=== PATIENT | male | born 1930 | race Caucasian/White ===

== ENCOUNTER → 2016-12-15 19:18 | Outpatient (CLI) | payer MEDICARE, BC ==
[2015-01-17 14:03] VITALS: BMI 23.3
[~2016-12-15 19:18] MED LIST: ALBUTEROL2.5 MG/3 M UPD; ALLEGRA180 MG PO; ATROVENT 0.02%2.5 ML UPD; AZELASTINE137 MCG/0. NASAL; BAYER CHEWABLE81 MG PO; BETAPACE 80 MG80 MG PO; BOUDREAUXS BUTT60 GM TOPICAL; CELEXA20 MG PO; COUMADIN4 MG PO; COUMADIN5 MG PO; COUMADIN7.5 MG PO; DESERYL100 MG PO; DUONEB 2.5-0.5 M3 ML INH; DUONEB 2.5-0.5 M3 ML UPD; EFFIENT10 MG PO; FLORAJEN3 CAPS460 MG PO; FLUTICASONE PRO16 GM NASAL; GAS-X80 MG PO; GLIMEPIRIDE2 MG PO; GLUCOTROL 5 MG T5 MG PO; HUMULIN R100 U/ML SC; LANTUS INSULIN10 ML SC; LASIX40 MG PO; LUTEIN20 MG PO; LYRICA150 MG PO; MEGACE40 MG PO; MIRAPEX0.5 MG PO; MUCINEX DM ER1 EAC1 PO; NITRO-DUR0.2 MG TD; NORCO 10/325 TA1 TA1 PO; PLAVIX75 MG PO; PREDNISONE20 MG PO; PRILOSEC2.5 MG PO; PRILOSEC20 MG PO; PROTONIX40 MG PO; PULMICORT0.5 MG/21 UPD; RACEMIC EPI 2.0.5 ML INH; SALINE NASAL SP45 ML NASAL; SINGULAIR10 MG PO; STERAPRED 5MG 125 MG PO; TESSALON PERLE100 MG PO; TRIMETHOPRIM100 MG PO; ULTRAM50 MG PO; VENTOLIN HFA18 GM INH; ZOCOR20 MG PO
[2016-12-15 21:18] LABS: INR 1.11 (0.85-1.17); PROTIME 14.2 SECONDS (11.6-15.0)
[2016-12-15 21:24] LABS: HEMOGLOBIN A1C 10.5 % (4.8-6.0)
[2016-12-15 21:34] LABS: ALBUMIN 3.5 g/dL (3.4-5.0); ALKALINE PHOSPHATASE 81 U/L (46-116); ALT (SGPT) 20 U/L (10-68); BILIRUBIN - INDIRECT 0.48 mg/dL (0.00-1.00); BILIRUBIN - TOTAL 0.68 mg/dL (0.2-1.3); CALC OSMOLALITY 287 mosm/kg (275-300); CALCIUM 8.5 mg/dL (8.5-10.1); CARBON DIOXIDE 39.1 mmol/L (21.0-32.0); CHLORIDE - SERUM 97 mmol/L (98-107); CHOL - HDL RATIO 5.3 ratio (2.3-4.9); CHOLESTEROL, TOTAL 164 mg/dL (0-200); GLUCOSE 248 mg/dL (74-106); HDL CHOLESTEROL 31 mg/dL (32-96); LDL CHOLESTEROL 84 mg/dL (0-100); LDL-HDL RATIO 2.7 ratio (1.5-3.5); POTASSIUM - SERUM 4.2 mmol/L (3.5-5.1); PROTEIN - SERUM 6.6 g/dL (6.4-8.2); SODIUM 138 mmol/L (136-145); T4 THYROXIN - FREE 1.02 ng/dL (0.76-1.46); THYROID STIMULATING HORMONE 1.49 uIU/mL (0.36-3.74); TRIGLYCERIDE 247 mg/dL (30-200); UREA NITROGEN 23 mg/dL (7-18); eGFR NON AFRICAN AMERICAN 75 mL/min (90-120)
== END | disposition home or self-care (01) ==
LOC: D.LABREF 19:18
PROVIDERS: Family Medicine
DX: J44.9 Chronic obstructive pulmonary disease, unspecified (principal); E11.9 Type 2 diabetes mellitus without complications; I10 Essential (primary) hypertension; R53.1 Weakness; R33.8 Other retention of urine

== ENCOUNTER → 2016-12-23 15:23 | Outpatient (CLI) | payer MEDICARE, BC ==
[2015-01-17 14:03] VITALS: BMI 23.3
[2016-12-23 15:41] LABS: BASOPHILS 0.2 % (0.0-2.0); EOSINOPHILS 0.8 % (0-7); HEMATOCRIT 39.9 % (42.0-54.0); HEMOGLOBIN 12.8 g/dL (13.5-17.5); IMMATURE GRANULOCYTES 0.2 % (0-5); LYMPHOCYTES 21.8 % (15-50); MCHC 32.1 g/dL (31.0-37.0); MCV 90.3 fL (80.0-100.0); MEAN PLATELET VOLUME 11.1 fL (7.4-10.4); MONOCYTES 14.3 % (2-11); NEUTROPHILS 62.7 % (40-80); PLATELET COUNT 172 10x3/uL (130-400); RBC 4.42 10x6/uL (4.20-6.10); RDW 14.7 % (11.5-14.5); WBC 6.2 10x3/uL (4.8-10.8)
== END | disposition home or self-care (01) ==
LOC: D.LABREF 15:23
PROVIDERS: Family Medicine
DX: J44.9 Chronic obstructive pulmonary disease, unspecified (principal); L89.152 Pressure ulcer of sacral region, stage 2

== ENCOUNTER 2017-01-14 20:32 | Inpatient (IN) | payer MEDICARE, BC ==
[~2017-01-14] VITALS: Ht 185.4 cm; Wt 85.9 kg
[~2017-01-14 20:32] MED LIST changes: -ALBUTEROL2.5 MG/3 M UPD; -ATROVENT 0.02%2.5 ML UPD; -AZELASTINE137 MCG/0. NASAL; -BOUDREAUXS BUTT60 GM TOPICAL; -COUMADIN4 MG PO; -FLORAJEN3 CAPS460 MG PO; -FLUTICASONE PRO16 GM NASAL; -GAS-X80 MG PO; -GLIMEPIRIDE2 MG PO; -HUMULIN R100 U/ML SC; -LANTUS INSULIN10 ML SC; -LUTEIN20 MG PO; -MUCINEX DM ER1 EAC1 PO; -PREDNISONE20 MG PO; -PROTONIX40 MG PO; -PULMICORT0.5 MG/21 UPD; -RACEMIC EPI 2.0.5 ML INH; -SALINE NASAL SP45 ML NASAL; -SINGULAIR10 MG PO; -TESSALON PERLE100 MG PO; -ULTRAM50 MG PO; -VENTOLIN HFA18 GM INH
[2017-01-14 22:03] LABS: BASOPHILS 0.2 % (0.0-2.0); EOSINOPHILS 1.4 % (0-7); HEMATOCRIT 38.4 % (42.0-54.0); HEMOGLOBIN 11.8 g/dL (13.5-17.5); IMMATURE GRANULOCYTES 0.2 % (0-5); LYMPHOCYTES 14.9 % (15-50); MCH 28.8 pg (26.0-34.0); MCHC 30.7 g/dL (31.0-37.0); MCV 93.7 fL (80.0-100.0); MEAN PLATELET VOLUME 9.8 fL (7.4-10.4); MONOCYTES 13.1 % (2-11); NEUTROPHILS 70.2 % (40-80); PLATELET COUNT 171 10x3/uL (130-400); RDW 14.8 % (11.5-14.5); WBC 8.6 10x3/uL (4.8-10.8)
[2017-01-14 22:25] LABS: ALBUMIN 3.1 g/dL (3.4-5.0); ALKALINE PHOSPHATASE 70 U/L (46-116); ALT (SGPT) 13 U/L (10-68); BILIRUBIN - TOTAL 0.84 mg/dL (0.2-1.3); CALC OSMOLALITY 272 mosm/kg (275-300); CALCIUM 8.7 mg/dL (8.5-10.1); CARBON DIOXIDE 32.8 mmol/L (21.0-32.0); CHLORIDE - SERUM 98 mmol/L (98-107); CREATININE - SERUM 0.8 mg/dL (0.6-1.3); POTASSIUM - SERUM 5.4 mmol/L (3.5-5.1); PROTEIN - SERUM 6.5 g/dL (6.4-8.2); SODIUM 135 mmol/L (136-145); UREA NITROGEN 16 mg/dL (7-18); eGFR NON AFRICAN AMERICAN > 90 mL/min (90-120)
[2017-01-14 22:27] LABS: GLUCOSE 133 mg/dL (74-106)
[2017-01-15] VITALS (7 sets, daily range): BP systolic 116–184; BP diastolic 58–92; Ht 185.4 cm; Wt 85.9 kg
--- NOTE | 2017-01-15 00:18 | NUR ---
REPORT RECEIVED FROM IZAIAH GUERRERO RN FROM ER. AWAITING PTS ARRIVAL.
--- NOTE | 2017-01-15 01:46 | NUR ---
PT ARRIVED VIA STRETCHER, AWAKE, ALERT, CONFUSED TO PLACE AND TIME. PT WAS IMMEDIATELY PLACED ON BIPAP, FAMILY AT BEDSIDE. PT IS CURRENTLY REACHING FOR UNSEEN THINGS IN THE AIR, WHICH THE FAMILY STATES HE DOES THAT WHEN HE IS HYPOXIC. PT ORIGINALLY PLACED IN ROOM 2128, BUT RAPIDLY MOVED TO 2139 R/T THE NEED FOR MORE SPACE FOR FAMILY TO STAY. V/S STABLE, O2 @ 100% ON BIPAP. PT RESTING COMFORTABLY, IN NO ACUTE DISTRESS AT THIS TIME. WILL MONITOR CLOSELY.
[2017-01-15] MEDS ORDERED: GLIMEPIRIDE2 MG PO (02:15)
[2017-01-15] MEDS ORDERED: AZELASTINE137 MCG/0. NASAL (02:19)
[2017-01-15] MEDS ORDERED: VENTOLIN HFA18 GM INH (02:21)
[2017-01-15] MEDS ORDERED: ULTRAM50 MG PO (02:23)
[2017-01-15] MEDS ORDERED: GAS-X80 MG PO (02:29)
[2017-01-15] MEDS ORDERED: LUTEIN20 MG PO (02:31)
[2017-01-15] MEDS ORDERED: BOUDREAUXS BUTT60 GM TOPICAL (02:32)
--- NOTE | 2017-01-15 04:17 | NUR ---
PER DR. PERLA, RESTART PTS HOME MEDICATIONS
--- NOTE | 2017-01-15 05:52 | NUR ---
HOME MEDS ENTERED AND RESTARTED PER DR. PERLA. PT IS STILL DEMONSTRATING INCREASED CONFUSION. PT HAS A TRAPEEZE BAR AT HOME THAT HE USES TO HELP WITH POSITIONING AND IS REACHING FOR ONE HERE. WILL TALK TO DAYSHIFT ABOUT GETTING ONE FOR HIM. PT CONTINUES ON BIPAP WITHOUT ANY DIFFICULTY. FAMILY REMAINS AT BEDSIDE. CONTINUE TO MONITOR CLOSELY.
--- NOTE | 2017-01-15 07:45 | NUR ---
AM ROUNDING- RECEIVED REPORT FROM CIGAR SORTER NURSE TEN LEDEZMA. PT IS CURRENTLY LAYING IN BED ON BACK WITH EYES OPEN RESTING. FAMILY MEMBERS ARE AT BEDSIDE. ON MONITOR SHOWING SR, HR 60. BIPAP IS CURRENTLY ON. 20G IV SEEN TO LEFT ARM THAT IS CURRENTLY SALINE LOCKED. RIGHT AKA SEEN. PER REPORT PT IS BEDFAST AT PRESENT TIME. FAMILY MEMBERS ARE REQUESTING PT TO BE TAKEN OFF BIPAP SO PT CAN EAT BREAKFAST. WILL PAGE RESPIRATORY TO PTS ROOM. WILL CONTINUE TO MONITOR AND CONTINUE WITH PLAN OF CARE.
--- NOTE | 2017-01-15 12:11 | NUR ---
1130- SARABJIT WITH TELEMETRY STATES TO ME THAT PT HAD A MOMENT OF A FLUTTER. WENT TO CHECK ON PT AND PT IS IN NO DISTRESS AND IS ON BIPAP CURRENTLY. NOTIFIED DR. JUAREZ ON UNIT. PT DID NOT TAKE BETAPACE THIS AM BECAUSE OF BEING NAUSEOUS. GAVE PT BETAPACE ORDERED. WILL CONTINUE TO MONITOR.
--- NOTE | 2017-01-15 13:28 | NUR ---
ALEKSANDR WITH RESPIRATORY INFORMED ME THAT PTS ABDOMEN IS VERY FIRM AND DISTENDED. DR. JUAREZ ON UNIT AND IS AWARE. AWAITING NEW ORDERS.
--- NOTE | 2017-01-15 13:30 | NUR ---
CALLED RADILOGY TO INFORM THEM THAT PT NEEDS XRAY SOON THEY CAN DO IT AND THAT THEY WILL NEED TO DO IT IN ROOM. RADIOLOGY STATES THEY WILL BE DOWN SOON.
--- NOTE | 2017-01-15 14:35 | NUR ---
INSERTED ACOSTA CATHETER ORDERED. 10CC OF SALINE INSERTED INTO BALLOON SYRINGE. TOLERATED WELL. YELLOW URINE FLOW SEEN. WILL CONTINUE TO MONITOR.
--- NOTE | 2017-01-15 15:51 | NUR ---
TOMASZ, FROM RADIOLOGY STATED THAT DR. DALY CALLED RESULTS TO DR. JUAREZ FROM PTS XRAY OF ABDOMEN. WILL AWAIT NEW ORDERS AND CONTINUE TO MONITOR.
--- NOTE | 2017-01-15 17:48 | NUR ---
PT IS CURRENTLY LAYING IN BED ON BACK WITH EYES OPEN RESTING. ON BIPAP PER RESPIRATORY. FAMILY MEMBERS ARE AT BEDSIDE. NO NEED AT CURRENT TIME. WILL CONTINUE TO MONITOR.
--- NOTE | 2017-01-15 18:43 | NUR ---
PT IS BACK IN SR, WITH HR OF 80.
--- NOTE | 2017-01-15 22:54 | NUR ---
PT AWAKE, ALERT, ORIENTED X 3, FAMILY AT BEDSIDE. PT HAS BEEN TOLERATING HIS BIPAP WELL. CURRENTLY ON OXYMIZER 15LPM WHILE TAKING HIS MEDS, PT DID EAT A POPSCICLE AND SOME CHICKEN BROTH WITHOUT ANY NAUSEA. FAMILY TO CALL WHEN PT IS READY TO GO BACK ON BIPAP. CONTINUE TO MONITOR CLOSELY.
[2017-01-16] VITALS: BP 128/56
[2017-01-16 04:00] VITALS: BP 109/37
--- NOTE | 2017-01-16 04:05 | NUR ---
PTS DAUGHTER, LILI CHRIS, STATED PT HAD ANOTHER BM. SHE CLEANED AND CHANGED PT. SHE STATED PT IS RESTING COMFORTABLY AND DENIES ANY NEEDS AT THIS TIME. CONTINUE TO MONITOR CLOSELY.
[2017-01-16 05:54] LABS: BASOPHILS 0.2 % (0.0-2.0); EOSINOPHILS 0 % (0-7); HEMATOCRIT 36.4 % (42.0-54.0); HEMOGLOBIN 11.1 g/dL (13.5-17.5); IMMATURE GRANULOCYTES 0.4 % (0-5); LYMPHOCYTES 17.2 % (15-50); MCH 28.5 pg (26.0-34.0); MCHC 30.5 g/dL (31.0-37.0); MCV 93.6 fL (80.0-100.0); MONOCYTES 3.8 % (2-11); NEUTROPHILS 78.4 % (40-80); PLATELET COUNT 159 10x3/uL (130-400); RBC 3.89 10x6/uL (4.20-6.10); RDW 14.9 % (11.5-14.5)
[2017-01-16 05:59] LABS: INR 1.78 (0.85-1.17); PROTIME 20.7 SECONDS (11.6-15.0)
[2017-01-16 06:00] LABS: WBC 5.1 10x3/uL (4.8-10.8)
[2017-01-16 06:20] LABS: CALCIUM 8.9 mg/dL (8.5-10.1); CARBON DIOXIDE 32.5 mmol/L (21.0-32.0); CHLORIDE - SERUM 101 mmol/L (98-107); PRO BNP 3659 pg/mL (0-450); SODIUM 139 mmol/L (136-145); eGFR NON AFRICAN AMERICAN 75 mL/min (90-120)
[2017-01-16 06:21] LABS: CALC OSMOLALITY 289 mosm/kg (275-300); GLUCOSE 209 mg/dL (74-106); POTASSIUM - SERUM 4.1 mmol/L (3.5-5.1); UREA NITROGEN 30 mg/dL (7-18)
--- NOTE | 2017-01-16 07:53 | NUR ---
AM ROUNDING- RECEIVED REPORT FROM PAVER NURSE TEN LEDEZMA. PT IS CURRENTLY LAYING IN BED ON BACK WITH EYES OPEN RECEIVING BREATHING TX. DAUGHTER AND ARE AT BEDSIDE. ON MONITOR SHOWING SR, HR 60. FSBS ACHS. ON BIPAP PRN PER REPORT. ACOSTA CATHETER SEEN WITH YELLOW URINE. IV SEEN TO LEFT FOREARM THAT IS CURRENTLY SALINE LOCKED. ON OXIMIZER AT 7L PER ALEKSANDR WITH RESPIRATORY. NO NEED AT CURRENT TIME. WILL CONTINUE TO MONITOR AND CONTINUE WITH PLAN OF CARE.
[2017-01-16 08:27] VITALS: BP 119/90
[2017-01-16 13:36] VITALS: BP 142/62
--- NOTE | 2017-01-16 18:01 | NUR ---
PT IS CURRENTLY SITTING UP IN BED WITH EYES CLOSED RESTING. FAMILY MEMBERS ARE AT BEDSIDE (, SON, AND [id number]). NO NEED AT CURRENT TIME. WILL CONTINUE TO MONITOR AND CONTINUE WITH PLAN OF CARE.
[2017-01-16 18:52] VITALS: BP 141/56
[2017-01-16 19:00] VITALS: BP 129/53
--- NOTE | 2017-01-16 23:34 | NUR ---
NURSE ROUNDS 21:00 - PT AWAKE, ALERT, ORIENTED, FAMILY AT BEDSIDE. PT IS NOW ON NC @ 2LPM, RESPIRATIONS EVEN AND UNLABORED. PT USES BIPAP DURING SLEEP. PT HAS HAD SEVERAL BM'S TODAY, AND STATES HIS NAUSEA IS NOW GONE. CONTINUE TO MONITOR CLOSELY.
[2017-01-17] VITALS: BP 124/53
--- NOTE | 2017-01-17 02:56 | NUR ---
PT HAS BECOME MILDLY AGITATED WITH HIS BIPAP SO I HAVE REMOVED IT TEMPORARILY, REPLACED HIS O2 WITH NC @ 2LPM, AND ADMINISTERED PRN XANAX. PT HAS ALSO HAD ANOTHER BM. AT BEDSIDE. PT DENIES ANY NEEDS. CONTINUE TO MONITOR CLOSELY.
[2017-01-17 04:00] VITALS: BP 127/62
[2017-01-17 05:21] LABS: BASOPHILS 0 % (0.0-2.0); EOSINOPHILS 0 % (0-7); HEMOGLOBIN 10.7 g/dL (13.5-17.5); IMMATURE GRANULOCYTES 0.1 % (0-5); MCH 28.2 pg (26.0-34.0); MCHC 31.5 g/dL (31.0-37.0); MEAN PLATELET VOLUME 9.7 fL (7.4-10.4); MONOCYTES 6.4 % (2-11); NEUTROPHILS 85.5 % (40-80); PLATELET COUNT 163 10x3/uL (130-400); RBC 3.79 10x6/uL (4.20-6.10); RDW 14.5 % (11.5-14.5)
[2017-01-17 05:25] LABS: MCV 89.7 fL (80.0-100.0); WBC 8.3 10x3/uL (4.8-10.8)
[2017-01-17 05:37] LABS: INR 2.34 (0.85-1.17); PROTIME 25.8 SECONDS (11.6-15.0)
[2017-01-17 06:05] LABS: ANION GAP 8.5 mmol/L (8-16); CALCIUM 8.3 mg/dL (8.5-10.1); CARBON DIOXIDE 34.7 mmol/L (21.0-32.0); CREATININE - SERUM 1.1 mg/dL (0.6-1.3); POTASSIUM - SERUM 4.2 mmol/L (3.5-5.1)
--- NOTE | 2017-01-17 06:27 | NUR ---
PT AND ARE REQUESTING TO HAVE DR. JOHNSON CONSULTED R/T A FOLLOW UP APPT FOR HIS RECENT SKIN CANCER REMOVALS. WILL REPORT TO DAY[facility].
--- NOTE | 2017-01-17 06:40 | NUR ---
RECEIVED PT REPORT. WILL CONTINUE PLAN OF CARE. NO OTHER NEEDS AT THIS TIME. WILL CONTINUE TO [facility].
[2017-01-17 07:41] VITALS: BP 122/64
--- NOTE | 2017-01-17 09:37 | NUR ---
PT IS ALERT. ASSESSMENT DONE PER FLOWSHEET. NO OTHER NEEDS AT THIS TIME. WILL CONTINUE TO MONTIOR.
--- NOTE | 2017-01-17 12:12 | NUR ---
PT IS ALERT. NO SS OF DISTRESS AT THIS ITME. WILL CONTINUE TO MONITOR.
--- NOTE | 2017-01-17 14:00 | NUR ---
Nutrition Follow Up: Chart reviewed. Pt is eating 63% meal avg on an AHA diet. I<O. No new wt. +BM 01/17/17. Labs noted - Glucose elevated. Meds noted including Solu Medrol, Humulin, Amaryl, Lasix. Pt with fair po intake at this time. Rec liberalizing diet to encourage po intake. RD following.
--- NOTE | 2017-01-17 14:46 | NUR ---
Patient Name: ROCIO SHAH Admission Status: ER Accout number: [id number] Admission Date: 01-14-2017 : 1930 Admission Diagnosis: Attending: NIMCO Current LOS: 3 Anticipated DC Date: Planned Disposition: Home with Home Health Primary Insurance: MEDICARE A & B Is the patient Alert and Oriented? Yes * How many steps to enter\exit or inside your home? RAMP * PCP DR MAXWELL * Pharmacy [facility] * Preadmission Environment Home with Family * ADLs Partial Dependent * Partial ADLs (Assistance needed) Ambulation * Equipment Bedside [facility] Bed Nebulizer Other Oxygen Rolling Walker Shower Chair Wheelchair * Other Equipment MOTORIZED WHEELCHAIR, HAND HELD SHOWER NOZEL, GRAB BARS IN SHOWER. HOME AND PORTABLE OXYGEN THROUGH [facility]. * List name and contact numbers for known caregivers / representatives who currently or will assist patient after discharge: LILI CHRIS, DTR, HAIM SHAH, SPOUSE, BIN DE LA ROSA, SON, * Community resources currently utilized Home Health * Please name any agencies selected above. [facility] * Additional services required to return to the preadmission environment? Yes * Can the patient safely return to the preadmission environment? Yes * Has this patient been hospitalized within the prior 30 days at any hospital? No Discharge Planning Comments: CM MET WITH PATIENT AND HIS TO ASSESS DC PLAN/NEEDS. STATED THAT PATIENT LIVES AT HOME AND CURRENTLY HAS HOME HEALTH SERVICES WITH [facility]. STATED THAT THEIR HOME IS A SAFE PLACE AND PLANS ARE TO RETURN HOME WITH RESUMPTION OF SERVICES AT DISCHARGE. REPORT THAT FAMILY IS AVAILABLE TO DRIVE PATIENT HOME AT DISCHARGE. CM DISCUSSED POSSIBLE NEED FOR HOME BIPAP PER MD NOTES AND INFORMED THAT [employer], WHO IS PT'S CURRENT DME PROVIDE, DOES NOT PROVIDE TRILOGY/BIPAP AND THAT ALTERNATE DME PROVIDER WOULD NEED TO BE CHOSEN IF ORDERED BY MD. PATIENT AND FAMILY WOULD LIKE TO USE [facility] IF POSSIBLE IF TRILOGY/BIPAP ARE ORDERED FOR HOME. AT THIS TIME, THEY VOICE NO DC NEEDS. CM WILL FOLLOW AND ASSIST DC ORDERS/NEEDS ARISE. Truck Headlight Assembler: Geovanna Caballero RN, CM
[2017-01-17 16:22] VITALS: BP 120/61
--- NOTE | 2017-01-17 20:20 | NUR ---
PT SITTING UP IN BED, AWAKE, ALERT, ORIENTED. IS REQUESTING HEEL PROTECTOR FOR PTS LEFT FOOT. 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 PT DENIES ANY OTHER NEEDS. CONTINUE TO MONITOR CLOSELY.
--- NOTE | 2017-01-17 20:49 | NUR ---
BUNNY BOOT PLACED ON LEFT HEEL FOR COVERAGE AND PROTECTION OF HIS CHRONIC SORE. FAMILY AT BEDSIDE. PT DENIES ANY NEEDS. CONTINUE TO MONITOR CLOSELY.
[2017-01-17 21:17] VITALS: BP 131/54
--- NOTE | 2017-01-17 23:41 | NUR ---
PT BATHED, GOWN CHANGED, LINEN CHANGED, BIPAP ON, PT RESTING COMFORTABLY. STATES PT IS HAVING CLEAR TO WHITE JELLY LOOKING STOOL. I HAVE NOT SEEN IT YET. HAS ALSO BEEN PLACING PETROLEUM JELLY ON PTS SCABS FROM HIS RECENT SKIN SURGERY REMOVAL TO HIS RIGHT FACE AND EAR. I EXPLAINED TO HER THAT SHE DOES NOT NEED TO DO THAT WHILE PT IS WEARING HIS O2. SHE AGREED NOT TO. DRESSINGS CHANGED, PT DENIED ANY OTHER NEEDS. IS ALSO CONCERNED THAT PTS PENIS IS SWOLLEN. THERE IS DISTENTION ON THE POSTERIOR PART OF PTS PENIS, BUT SKIN IS CLEAN, INTACT, NO DISCOLORATION, NO DRAINAGE OR OOZING. ACOSTA CATH IS INTACT AND DRAINING WELL. CONTINUE TO MONITOR CLOSELY.
[2017-01-18 00:40] VITALS: BP 107/56
[2017-01-18 04:47] LABS: HEMATOCRIT 33.4 % (42.0-54.0); HEMOGLOBIN 11.1 g/dL (13.5-17.5); LYMPHOCYTES 8.9 % (15-50); MCH 29.4 pg (26.0-34.0); MCHC 33.2 g/dL (31.0-37.0); MCV 88.4 fL (80.0-100.0); NEUTROPHILS 85.9 % (40-80); PLATELET COUNT 189 10x3/uL (130-400); RBC 3.78 10x6/uL (4.20-6.10); RDW 14.4 % (11.5-14.5); WBC 6.3 10x3/uL (4.8-10.8)
[2017-01-18 04:52] LABS: INR 2.33 (0.85-1.17); PROTIME 25.6 SECONDS (11.6-15.0)
[2017-01-18 05:05] LABS: ANION GAP 7.2 mmol/L (8-16); CALCIUM 8.4 mg/dL (8.5-10.1); CARBON DIOXIDE 35.9 mmol/L (21.0-32.0); CREATININE - SERUM 1.1 mg/dL (0.6-1.3); MAGNESIUM - SERUM 1.8 mg/dL (1.8-2.4); PHOSPHOROUS 3.5 mg/dL (2.5-4.9); POTASSIUM - SERUM 4.1 mmol/L (3.5-5.1)
[2017-01-18 05:57] VITALS: BP 137/70
[2017-01-18 06:57] LABS: APPEARANCE HAZY (CLEAR); BACTERIA MANY /hpf (NONE SEEN); BILIRUBIN NEGATIVE (NEGATIVE); COLOR YELLOW (YELLOW); EPITHELIAL CELLS 0-5 /hpf (0-5); GLUCOSE NEGATIVE (NEGATIVE); KETONE NEGATIVE (NEGATIVE); LEUKOCYTE ESTERASE 1+ (NEGATIVE); MUCUS <1+ /lpf (NONE SEEN); NITRITE POSITIVE (NEGATIVE); PROTEIN NEGATIVE (NEGATIVE); RED CELLS - URINE 0-5 /hpf (0-5); SPECIFIC GRAVITY 1.015 (1.005-1.020)
[2017-01-18 07:47] VITALS: BP 126/88
--- NOTE | 2017-01-18 09:17 | NUR ---
PT IS ALERT. ASSESSMENT DONE PER FLOWSHEET. NO OTHER NEEDS AT THIS TIME. WILL CONTINUE PHOEBE ONITOR.
[2017-01-18 11:06] VITALS: BP 120/52
--- NOTE | 2017-01-18 13:33 | NUR ---
PT IS ALERT. NO SS OF DISTRESS AT THIS TIME. WILL CONTINUE TO MOTNIOR.
[2017-01-18 16:12] VITALS: BP 126/60
[2017-01-18 21:13] VITALS: BP 138/52
--- NOTE | 2017-01-19 06:30 | NUR ---
RECEIVED PT REPORT. NO OTHER NEEDS AT THIS TIME. WILL CONTINUE POC....
[2017-01-19 06:52] LABS: INR 2.21 (0.85-1.17); PROTIME 24.6 SECONDS (11.6-15.0)
[2017-01-19 07:09] LABS: BASOPHILS 0 % (0.0-2.0); EOSINOPHILS 0.1 % (0-7); HEMATOCRIT 35.4 % (42.0-54.0); HEMOGLOBIN 11.1 g/dL (13.5-17.5); IMMATURE GRANULOCYTES 0.3 % (0-5); LYMPHOCYTES 12.7 % (15-50); MCH 28.4 pg (26.0-34.0); MCHC 31.4 g/dL (31.0-37.0); MCV 90.5 fL (80.0-100.0); MONOCYTES 17.8 % (2-11); NEUTROPHILS 69.1 % (40-80); PLATELET COUNT 173 10x3/uL (130-400); RBC 3.91 10x6/uL (4.20-6.10); RDW 14.4 % (11.5-14.5); WBC 7.8 10x3/uL (4.8-10.8)
[2017-01-19 07:24] LABS: CALCIUM 7.8 mg/dL (8.5-10.1); CARBON DIOXIDE 37.7 mmol/L (21.0-32.0); CREATININE - SERUM 1.1 mg/dL (0.6-1.3); POTASSIUM - SERUM 3.7 mmol/L (3.5-5.1)
[2017-01-19 08:24] LABS: IMMUNOGLOBULIN A 140 mg/dL (61-437); IMMUNOGLOBULIN G 651 mg/dL (700-1600)
[2017-01-19 08:37] VITALS: BP 116/54
[2017-01-19 09:19] LABS: IMMUNOGLOBULIN E 85 IU/mL (0-100)
[2017-01-19 12:32] VITALS: BP 112/43
--- NOTE | 2017-01-19 13:03 | NUR ---
PT IS ALERT. ASSESSMENT DONE PER FLOWSHEET. NO OTHER NEEDS AT THIS TIME. WILL CONTINUE TO MONITR.
--- NOTE | 2017-01-19 13:10 | NUR ---
PT IS ALERT NO SS OF DISTRESS WILL CONTINUE TO MONITOR.
[2017-01-19 16:07] VITALS: BP 134/51
[2017-01-19 20:57] VITALS: BP 121/50
[2017-01-19 23:00] VITALS: BP 142/72
[2017-01-20 05:18] LABS: BASOPHILS 0 % (0.0-2.0); EOSINOPHILS 0 % (0-7); HEMATOCRIT 34.5 % (42.0-54.0); IMMATURE GRANULOCYTES 0.2 % (0-5); LYMPHOCYTES 10.2 % (15-50); MCH 28.6 pg (26.0-34.0); MCHC 31.9 g/dL (31.0-37.0); MCV 89.6 fL (80.0-100.0); MEAN PLATELET VOLUME 10.1 fL (7.4-10.4); MONOCYTES 15.4 % (2-11); NEUTROPHILS 74.2 % (40-80); PLATELET COUNT 196 10x3/uL (130-400); RBC 3.85 10x6/uL (4.20-6.10); RDW 14.3 % (11.5-14.5); WBC 8.6 10x3/uL (4.8-10.8)
[2017-01-20 05:34] LABS: CALC OSMOLALITY 288 mosm/kg (275-300); CALCIUM 8.7 mg/dL (8.5-10.1); CARBON DIOXIDE 38.3 mmol/L (21.0-32.0); CHLORIDE - SERUM 96 mmol/L (98-107); CREATININE - SERUM 0.9 mg/dL (0.6-1.3); POTASSIUM - SERUM 3.8 mmol/L (3.5-5.1); SODIUM 137 mmol/L (136-145); UREA NITROGEN 28 mg/dL (7-18); eGFR NON AFRICAN AMERICAN 85 mL/min (90-120)
[2017-01-20 05:42] LABS: GLUCOSE 254 mg/dL (74-106); INR 1.66 (0.85-1.17); PROTIME 19.6 SECONDS (11.6-15.0)
[2017-01-20 05:47] VITALS: BP 111/58
--- NOTE | 2017-01-20 07:29 | NUR ---
PATIENT IN BED RESTING. FAMILY AT BEDSIDE. BED IN LOW POSITION, CALL LIGHT IN REACH. BED RAILS UP x 2. CONTINUE TO MONITOR
--- NOTE | 2017-01-20 07:51 | NUR ---
AM ROUNDS - PT IN BED WITH 3L O2 AND CPAP. ACOSTA SEEN WITH CLEAR YELLOW URINE. PT HAS HEAL BRIDGES TO BILATERAL HEALS. IV TO LEFT AC WITH NS AT KVO. AT BEDSIDE. NO NEEDS AT THIS TIME. WILL CONTINUE TO MONITOR.
--- NOTE | 2017-01-20 08:00 | NUR ---
IV RE-SITED TO RIGHT THUMB WITH 22G X 1 STICK PER THIS NURSE. LEFT AC IV WAS REMOVED IT WAS LEAKING. CLEANED UP FROM WET LINENS, ROLLED TO SIDE PASSING LARGE AMOUNT OF GAS AND CLEAR MUCOUS STOOL. PROPPED ON RIGHT SIDE WITH PILLOW.
[2017-01-20 08:03] VITALS: BP 116/68
[2017-01-20 12:10] VITALS: BP 112/52
--- NOTE | 2017-01-20 12:51 | NUR ---
PATIENT HAS A REDENNED AREA TO COCCYX THAT HE WILL NOT STAY OFF OF. MEPILEX SMALL SACRUM APPLIED AND DATED.
--- NOTE | 2017-01-20 14:04 | NUR ---
Nutrition Follow Up: Pt was asleep at the time of RD visit. Chart reviewed. Pt is eating 100% meal avg on an AHA diet. +BM 01/18/17. Labs reviewed - Glucose elevated. Meds noted including Prednisone, Humulin, Amaryl, Lasix. Pt with excellent po intake at this time. Will change diet to diabetic to aid in glucose control. RD following.
[2017-01-20 15:49] VITALS: BP 132/65
[2017-01-20 20:00] VITALS: BP 121/77
--- NOTE | 2017-01-20 21:30 | NUR ---
GAVE PT SCHEDULED MEDS. PT A&O X3. COMPLETE ASSESSMENT PER FLOW-SHEET. C/O HIP PAIN 01/17. GAVE PAIN MED AND XANAX FOR SLEEP REQUESTED. FAMILY VISITING AND DAUGHTER ROOMING IN. PT SLEEPING NOW. WILL CONTINUE TO MONITOR.
[2017-01-21] VITALS: BP 142/62
[2017-01-21 04:00] VITALS: BP 127/78
[2017-01-21 05:45] LABS: BASOPHILS 0 % (0.0-2.0); EOSINOPHILS 0.3 % (0-7); HEMATOCRIT 33.8 % (42.0-54.0); HEMOGLOBIN 10.9 g/dL (13.5-17.5); IMMATURE GRANULOCYTES 0.4 % (0-5); LYMPHOCYTES 13.2 % (15-50); MCH 28.6 pg (26.0-34.0); MCHC 32.2 g/dL (31.0-37.0); MCV 88.7 fL (80.0-100.0); MEAN PLATELET VOLUME 9.4 fL (7.4-10.4); MONOCYTES 12.5 % (2-11); NEUTROPHILS 73.6 % (40-80); PLATELET COUNT 190 10x3/uL (130-400); RBC 3.81 10x6/uL (4.20-6.10); RDW 14.5 % (11.5-14.5); WBC 7.9 10x3/uL (4.8-10.8)
[2017-01-21 05:51] LABS: INR 1.35 (0.85-1.17); PROTIME 16.6 SECONDS (11.6-15.0)
[2017-01-21 06:00] LABS: CALC OSMOLALITY 285 mosm/kg (275-300); CALCIUM 9.1 mg/dL (8.5-10.1); CARBON DIOXIDE 39.8 mmol/L (21.0-32.0); CHLORIDE - SERUM 96 mmol/L (98-107); CREATININE - SERUM 0.9 mg/dL (0.6-1.3); GLUCOSE 249 mg/dL (74-106); POTASSIUM - SERUM 3.5 mmol/L (3.5-5.1); SODIUM 136 mmol/L (136-145); UREA NITROGEN 29 mg/dL (7-18); eGFR NON AFRICAN AMERICAN 85 mL/min (90-120)
--- NOTE | 2017-01-21 07:55 | NUR ---
Awake easily, verbalized name and , patient with bipap on when sleeping, IV patent to right thumb. Verbalize no complaints. Spouse at bedside.
[2017-01-21 08:58] VITALS: BP 160/77
--- NOTE | 2017-01-21 10:19 | EC ---
PATIENT:ROCIO SHAH DATE OF SERVICE: 01/14/17 SEX: M MEDICAL RECORD: [id number] DATE OF : 30 LOCATION:D.M2 D.214 AGE OF PATIENT: 86 ADMISSION DATE: 01/14/17 REFERRING PHYSICIAN: INTERPRETING PHYSICIAN: KEN BRYAN MD ECHOCARDIOGRAM REPORT ECHO CHARGES 4 ECHO COMPLETE CLINICAL DIAGNOSIS: SOB HX OF CAD/HTN/PACER ECHOCARDIOGRAPHIC MEASUREMENTS (adult normal given) AC root (d.<3.7cm) 3.4 LV Septum d (<1.2 cm> 1.5 Valve Excursion 1.6 LV Septum (systole) 1.6 Left Atria (s.<4.0cm> 3.9 LVPW d(<1.2cm) 1.5 RV (d.<2.3cm) 4.5 LVPW (sytole) 1.8 LV diastole(<5.6CM) 4.6 MV E-F(>70mm/sec) LV systole 3.0 LVOT Diameter 1.5 MV exc.(>10mm) 1.0 Est.ejection fraction (50-75%) Pericardial Effusion N DOPPLER: LVIT A 113 E 109 LA RVSP 33 LVOT 126 AOP1/2T Asc. Ao 304 RVOT RA PA AV Gradient Peak 37.06 AV Mean 20.08 AV Area 0.7 MV Gradient Peak 6.10 MV Mean 2.87 MV Area COMMENTS: Multimedia Technician: Brandon SALAZAR Dairy Lab Technician:Brandon Auguste TAPE# PACS DATE OF SERVICE: 01/18/2017 Echocardiogram FINDINGS: 1. Left ventricular chamber size is within normal limits. Left ventricular systolic function is normal. Overall ejection fraction estimated at 50%. 2. Left atrium is within normal limits at 3.9 cm. Right atrium and right ventricular chamber sizes are mildly dilated. 3. 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 Valve area calculates to 0.7 cm-square. There is a gradient of 37 mm across the valve. The remaining valvular structures have normal structure and motion. 4. Doppler interrogation elsewise reveals mild mitral regurgitation, mild tricuspid regurgitation, no other valvular insufficiency or stenosis and pulmonary systolic pressure is normal at 33 mmHg. 5. No evidence of pericardial effusion or left ventricular thrombus. TRANSINT:[id number] Voice Confirmation ID: [id number] DOCUMENT ID: [id number] KEN BRYAN MD at 1019 CC: [id number] DICTATION DATE: 01/19/17 1036 DIRECTOR OF SPECIAL EVENTS: 01/19/17 1632 ADM IN [facility] [address] [place] [address]
--- NOTE | 2017-01-21 11:21 | NUR ---
PATIENT HAS A HOME TRILOGY IN USE, SO THE VISION BIPAP WAS REMOVED.
[2017-01-21 13:16] VITALS: BP 93/57
--- NOTE | 2017-01-21 14:55 | NUR ---
I WAS ASKED TO GO TO THE PATIENTS ROOM BECAUSE HIS TRILOGY MASK WAS REMOVED TO TAKE MEDICATION AND THEY COULD NOT GET THE MASK BACK ON PROPERLY. THE PATIENT WAS HOLDING THE MASK TO HIS FACE, THE CENTER FACE PIECE HAD FALLEN OUT AND THE ESMER WERE UNSTRAPED AND ONE HAD FALLEN OFF. I PLACED THE PATIENT ON A 2LNC THAT DR. WELDON HAD ORDERED WHEN OFF TRILOGY AND GAVE HIM AN UPDRAFT. I PUT THE MASK BACK TOGETHER AND PUT THE PATIENT BACK ON HIS TRILOGY,AFTER THE UPDRAFT BECAUSE HE WAS SLEEPING.
--- NOTE | 2017-01-21 14:55 | NUR ---
Resting quietly with bipap in place. No distress
[2017-01-21 17:21] VITALS: BP 134/62
[2017-01-21 20:00] VITALS: BP 119/65
--- NOTE | 2017-01-21 23:10 | NUR ---
PT RESTING QUIETLY WITHOUT C/O OR DISTRESS NOTED. FEW NEEDS VOICED. CALL LIGHT WITHIN REACH. WILL CONT TO MONITOR.
--- NOTE | 2017-01-21 23:41 | NUR ---
RESUMED CARE OF PT, FAMILY AT BEDSIDE, CALL LIGHT IN REACH, WILL CONTINUE TO MONITOR
[2017-01-22] VITALS: BP 124/70
[2017-01-22 04:00] VITALS: BP 106/61
[2017-01-22 04:47] LABS: BASOPHILS 0 % (0.0-2.0); EOSINOPHILS 0.2 % (0-7); HEMATOCRIT 35.5 % (42.0-54.0); HEMOGLOBIN 11.5 g/dL (13.5-17.5); IMMATURE GRANULOCYTES 0.2 % (0-5); LYMPHOCYTES 14.4 % (15-50); MCH 28.8 pg (26.0-34.0); MCHC 32.4 g/dL (31.0-37.0); MEAN PLATELET VOLUME 9.9 fL (7.4-10.4); MONOCYTES 13.3 % (2-11); NEUTROPHILS 71.9 % (40-80); RBC 3.99 10x6/uL (4.20-6.10); RDW 14.3 % (11.5-14.5); WBC 8.8 10x3/uL (4.8-10.8)
[2017-01-22 04:48] LABS: PLATELET COUNT 288 10x3/uL (130-400)
[2017-01-22 05:01] LABS: INR 1.36 (0.85-1.17); PROTIME 16.7 SECONDS (11.6-15.0)
[2017-01-22 05:11] LABS: ANION GAP 6.2 mmol/L (8-16); CALCIUM 8.7 mg/dL (8.5-10.1); CARBON DIOXIDE 38.7 mmol/L (21.0-32.0); CREATININE - SERUM 1.1 mg/dL (0.6-1.3); POTASSIUM - SERUM 3.9 mmol/L (3.5-5.1)
--- NOTE | 2017-01-22 07:45 | NUR ---
RESP UL ON . IV PATENT. ACOSTA INTACT. WILL CONT. PLAN OF CARE.
[2017-01-22 08:00] VITALS: BP 115/71
--- NOTE | 2017-01-22 08:27 | NUR ---
PT RESTING IN BED WITH EYES OPEN CALL LIGHT IN REACH WILL MONITER
[2017-01-22 12:00] VITALS: BP 112/63
--- NOTE | 2017-01-22 14:43 | NUR ---
PT RESTING IN BED WITH EYES OPEN CALL LIGHT IN REACH WILL MONITER
[2017-01-22 15:59] VITALS: BP 107/54
[2017-01-22 20:27] VITALS: BP 126/62
--- NOTE | 2017-01-22 21:40 | NUR ---
BLOODSUGAR 396-GAVE 16 UNITS PER NEW ORDERS
[2017-01-23 00:04] VITALS: BP 133/65
--- NOTE | 2017-01-23 02:11 | NUR ---
PT RESTING WELL WITHOUT C/O OR DISTRESS NOTED. CALL LIGHT WITHIN REACH. NO NEEDS VOICED. WILL MONITOR.
--- NOTE | 2017-01-23 03:26 | NUR ---
ASSESSMENT COMPLETE, SLEEPING WITH BIPAP ON, AT BEDSIDE, CALL LIGHT IN REACH, WILL CONTINUE TO MONITOR
[2017-01-23 04:39] VITALS: BP 93/58
[2017-01-23 07:45] LABS: BASOPHILS 0 % (0.0-2.0); EOSINOPHILS 0.7 % (0-7); IMMATURE GRANULOCYTES 0.5 % (0-5); LYMPHOCYTES 15.5 % (15-50); MCH 28.8 pg (26.0-34.0); MCHC 32.4 g/dL (31.0-37.0); MCV 88.9 fL (80.0-100.0); MEAN PLATELET VOLUME 9.4 fL (7.4-10.4); MONOCYTES 17.5 % (2-11); NEUTROPHILS 65.8 % (40-80); PLATELET COUNT 258 10x3/uL (130-400); RBC 4.16 10x6/uL (4.20-6.10); RDW 14.5 % (11.5-14.5); WBC 9.9 10x3/uL (4.8-10.8)
--- NOTE | 2017-01-23 07:50 | NUR ---
PATIENT RESTING IN BED. AT BEDSIDE. OXYGEN ON AT 2L PER N/C. BI-PAP ON AT NIGHT. TELEMTRY RUNNING PACE. VOICES NO NEEDS AT THIS TIME. CALL LIGHT WITHIN REACH
[2017-01-23 08:00] VITALS: BP 113/59
[2017-01-23 08:09] LABS: INR 1.56 (0.85-1.17); PROTIME 18.6 SECONDS (11.6-15.0)
[2017-01-23 08:14] LABS: ANION GAP 6.2 mmol/L (8-16); CALCIUM 8.7 mg/dL (8.5-10.1); CARBON DIOXIDE 37.9 mmol/L (21.0-32.0); CREATININE - SERUM 1.1 mg/dL (0.6-1.3); MAGNESIUM - SERUM 1.8 mg/dL (1.8-2.4); PHOSPHOROUS 4.1 mg/dL (2.5-4.9); POTASSIUM - SERUM 3.1 mmol/L (3.5-5.1)
--- NOTE | 2017-01-23 10:16 | NUR ---
Rehab Note- Acute Rehab Prescreen order received. Will continue to follow at this time. The patient will need to progress with therapy and be able to tolerate 3hrs of therapy per day. Thank you for this referral! Park Romero RN Clinical Liaison, [facility] Rehab/[place]
[2017-01-23 11:25] VITALS: BP 97/55
--- NOTE | 2017-01-23 11:45 | NUR ---
GLUCOSE LEVEL 303. TWELVE UNITS OF SLIDING SCALE INSULIN GIVEN
--- NOTE | 2017-01-23 12:35 | NUR ---
PT AT BS. CALL LIGHT IN REACH. WILL CONT. PLAN OF CARE.
--- NOTE | 2017-01-23 15:00 | NUR ---
PATIENT HAS MANY VISITORS IN ROOM AT THIS TIME. LYINGING IN BED RESTING. WEARING BI-PAP WHILE IN BED.
[2017-01-23 15:50] VITALS: BP 114/64
--- NOTE | 2017-01-23 18:24 | NUR ---
PERIPHERAL LINE OUT. 20GAGE TO RIGHT HAND INSERTED
[2017-01-23 20:48] VITALS: BP 122/54
[2017-01-24 00:30] VITALS: BP 148/69
[2017-01-24 04:30] VITALS: BP 121/70
--- NOTE | 2017-01-24 05:31 | NUR ---
NURSE ROUNDS 01/23/17 21:00 - PT AWAKE, ALERT, MILDLY CONFUSED, AND EXTREMELY HARD OF HEARING. AND DAUGHTER AT BEDSIDE. PT DENIES ANY ACUTE NEEDS. PTS DEMONSTRATES MILD CONFUSION AT NIGHT, SHE DISRUPTS PTS BIPAP BY TRYING TO TURN IT OFF, AND CHANGING THE SETTING. PTS HAS BEEN ADVISED SEVERAL TIMES BY NURSING AND RESPIRATORY STAFF TO NOT TOUCH ANY EQUIPMENT FOR ANY REASON IN PTS ROOM, AND TO ALWAYS CALL WHEN THERE IS ANY QUESTION ABOUT THE FUNCTION OF ANY EQUIPMENT. SHE HAS AGREED TO DO SO. CONTINUE TO MONITOR CLOSELY.
[2017-01-24 06:33] LABS: BASOPHILS 0 % (0.0-2.0); HEMATOCRIT 35.7 % (42.0-54.0); HEMOGLOBIN 11.4 g/dL (13.5-17.5); IMMATURE GRANULOCYTES 0.8 % (0-5); LYMPHOCYTES 15.3 % (15-50); MCH 28.6 pg (26.0-34.0); MCHC 31.9 g/dL (31.0-37.0); MCV 89.5 fL (80.0-100.0); MONOCYTES 15.3 % (2-11); NEUTROPHILS 67.6 % (40-80); PLATELET COUNT 244 10x3/uL (130-400); RBC 3.99 10x6/uL (4.20-6.10); RDW 14.3 % (11.5-14.5)
--- NOTE | 2017-01-24 06:38 | NUR ---
PT AWAKE, ALERT, ORIENTED AT THIS TIME, AT BEDSIDE. BIPAP MASK WAS REMOVED BY , RESPIRATORY WAS NOTIFIED. PT DENIES ANY ACUTE NEEDS, AND IS IN NO ACUTE DISTRESS. CONTINUE TO MONITOR.
[2017-01-24 06:48] LABS: INR 1.64 (0.85-1.17); PROTIME 19.3 SECONDS (11.6-15.0)
[2017-01-24 06:49] LABS: CALC OSMOLALITY 287 mosm/kg (275-300); CALCIUM 8.4 mg/dL (8.5-10.1); CHLORIDE - SERUM 98 mmol/L (98-107); GLUCOSE 106 mg/dL (74-106); POTASSIUM - SERUM 3.4 mmol/L (3.5-5.1); SODIUM 139 mmol/L (136-145); UREA NITROGEN 41 mg/dL (7-18); eGFR NON AFRICAN AMERICAN 75 mL/min (90-120)
--- NOTE | 2017-01-24 07:54 | NUR ---
AM ROUNDS - PT IN BED ON BACK WITH AT BEDSIDE. PT ON 2L O2 VIA NC. MONITOR SHOWING PACE AND HR 60. ACOSTA SEEN WITH CLEAR YELLOW URINE. RIGHT HAND IS WITH NS AT O. WILL CONTINUE TO MONITOR.
[2017-01-24 08:00] VITALS: BP 115/64
[2017-01-24 12:00] VITALS: BP 116/58
--- NOTE | 2017-01-24 15:05 | NUR ---
TO RADIOLOGY VIA BED AND PORTABLE O2.
--- NOTE | 2017-01-24 15:19 | NUR ---
BACK FROM RADIOLOGY. NEW MEPILEX PLACED TO REDDENED AREA ON COCCYX AND DATED.
--- NOTE | 2017-01-24 16:51 | NUR ---
Patient Name: ROCIO SHAH Encounter No: [id number] : 1930 Primary Insurance: MEDICARE A & B Anticipated DC Date: Planned Disposition: INPATIENT REHAB External Planned Provider: INPATIENT REHAB DCP follow-up note: CM RECEIVED ORDER FOR INPATIENT REHAB PRESCREENING, MET WITH PT AND SPOUSE IN ROOM AND DISCUSSED INPATIENT REHAB OPTIONS, REHAB OPTIONS AND HOME HEALTH. PT AND SPOUSE BOTH WILLING FOR INPATIENT REHAB EVALUATION FOR . IF DENIED, PT AND SPOUSE WILL NOT CONSIDER REHAB ELSEWHERE AND WILL RETURN HOME WITH CONTINUED HOME HEALTH PHYSICAL THERAPY. CM WAITING COMPLETION OF INPATIENT REHAB PRESCREENING AND ADMISSION DETERMINATION FROM INPATIENT REHAB. Shaun Lewis, CASE MANAGEMENT
[2017-01-24 22:46] VITALS: BP 134/64
[2017-01-25 02:33] VITALS: BP 114/66
--- NOTE | 2017-01-25 05:29 | NUR ---
NURSE ROUNDS 22:00 - PT LYING IN BED WITH TRILOGY MASK ON, RESPIRATIONS EVEN AND UNLABORED. DID PLACE PT ON TRILOGY WITHOUT DIFFICULTY AND HAS DEMONSTRATED TO ME THAT SHE DOES KNOW HOW TO TURN IT ON AND OFF PROPERLY. PT DENIED ANY NEEDS. HE IS COLLECTING SPUTUM ORDERED BY DR. WELDON. HAVE ORDERED A GUEST TRAY FOR . CONTINUE TO MONITOR CLOSELY. BED LOW, CALL LIGHT IN REACH, SIDE RAILS X 2, BED ALARM ON.
[2017-01-25 06:11] LABS: BASOPHILS 0.1 % (0.0-2.0); EOSINOPHILS 0.5 % (0-7); HEMATOCRIT 35.1 % (42.0-54.0); HEMOGLOBIN 11.2 g/dL (13.5-17.5); IMMATURE GRANULOCYTES 1.1 % (0-5); LYMPHOCYTES 13.1 % (15-50); MCH 28.6 pg (26.0-34.0); MCHC 31.9 g/dL (31.0-37.0); MCV 89.8 fL (80.0-100.0); MEAN PLATELET VOLUME 9.5 fL (7.4-10.4); MONOCYTES 16.8 % (2-11); NEUTROPHILS 68.4 % (40-80); PLATELET COUNT 270 10x3/uL (130-400); RBC 3.91 10x6/uL (4.20-6.10); RDW 14.4 % (11.5-14.5); WBC 9.3 10x3/uL (4.8-10.8)
[2017-01-25 06:19] LABS: INR 1.67 (0.85-1.17); PROTIME 19.7 SECONDS (11.6-15.0)
[2017-01-25 06:37] VITALS: BP 115/57
[2017-01-25 06:48] LABS: ANION GAP 4.8 mmol/L (8-16); CALCIUM 8.8 mg/dL (8.5-10.1); CARBON DIOXIDE 39.5 mmol/L (21.0-32.0); CREATININE - SERUM 1.1 mg/dL (0.6-1.3); POTASSIUM - SERUM 3.3 mmol/L (3.5-5.1)
[2017-01-25 08:02] VITALS: BP 111/64
[2017-01-25 12:04] VITALS: BP 138/70
[2017-01-25] MEDS ORDERED: ATROVENT 0.02%2.5 ML UPD (14:15)
[2017-01-25] MEDS ORDERED: ALBUTEROL2.5 MG/3 M UPD (14:16)
[2017-01-25] MEDS ORDERED: RACEMIC EPI 2.0.5 ML INH (14:16)
[2017-01-25] MEDS ORDERED: COUMADIN4 MG PO (14:17)
[2017-01-25] MEDS ORDERED: PULMICORT0.5 MG/21 UPD (14:18)
[2017-01-25] MEDS ORDERED: MUCINEX DM ER1 EAC1 PO (14:18)
[2017-01-25] MEDS ORDERED: TESSALON PERLE100 MG PO (14:18)
[2017-01-25] MEDS ORDERED: SINGULAIR10 MG PO (14:18)
[2017-01-25] MEDS ORDERED: FLUTICASONE PRO16 GM NASAL (14:20)
[2017-01-25] MEDS ORDERED: FLORAJEN3 CAPS460 MG PO (14:20)
[2017-01-25] MEDS ORDERED: SALINE NASAL SP45 ML NASAL (14:20)
[2017-01-25] MEDS ORDERED: PROTONIX40 MG PO (14:21)
[2017-01-25] MEDS ORDERED: LANTUS INSULIN10 ML SC (14:21)
[2017-01-25] MEDS ORDERED: HUMULIN R100 U/ML SC (14:21)
[2017-01-25] MEDS ORDERED: PREDNISONE20 MG PO (14:21)
[2017-01-25 15:54] VITALS: BP 148/61
--- NOTE | 2017-01-25 17:38 | NUR ---
PROVIDED VERBAL AND WRITTEN DISCHARGE TEACHING TO PT AND . BOTH VERBALIZED UNDERSTANDING REGARDING DICHARGE TEACHING. D/C RT HAND IV, TIP INTACT, ALSO D/C ACOSTA CATH, REMOVED 10CC FROM BALLOON.
--- NOTE | 2017-01-25 18:04 | NUR ---
CALLED IP REHAB AND GAVE REPORT TO VINNY RHOADES. REHAB WILL NOTIFY WHEN THEY ARE READY FOR PT.
--- NOTE | 2017-01-25 18:33 | NUR ---
PT TRANSFERED TO ROOM 1118A VIA WHEELCHAIR, NAD NOTED.
== END 2017-01-25 18:34 | DRG 177 ==
LOC: D.ER 20:32 → D.M2 23:01
PROVIDERS: Emergency Medicine; Internal Medicine Pulmonary Disease; ADMIT Family Medicine
PROC: 5A09357 Assistance with Respiratory Ventilation, Less than 24 Consecutive Hours, Continuous Positive Airway Pressure (ICD-10-PCS; 2017-01-14)
PROC: 0T9B70Z Drainage of Bladder with Drainage Device, Via Natural or Artificial Opening (ICD-10-PCS; principal; 2017-01-15)
DX: J69.0 Pneumonitis due to inhalation of food and vomit (principal); J96.22 Acute and chronic respiratory failure with hypercapnia; I50.23 Acute on chronic systolic (congestive) heart failure; J96.21 Acute and chronic respiratory failure with hypoxia; G93.49 Other encephalopathy; J44.1 Chronic obstructive pulmonary disease with (acute) exacerbation; N11.9 Chronic tubulo-interstitial nephritis, unspecified; I48.0 Paroxysmal atrial fibrillation; I25.10 Atherosclerotic heart disease of native coronary artery without angina pectoris; K21.9 Gastro-esophageal reflux disease without esophagitis; N31.9 Neuromuscular dysfunction of bladder, unspecified; E78.5 Hyperlipidemia, unspecified; I08.3 Combined rheumatic disorders of mitral, aortic and tricuspid valves; C43.30 Malignant melanoma of unspecified part of face; Z99.81 Dependence on supplemental oxygen; Z95.5 Presence of coronary angioplasty implant and graft; Z95.0 Presence of cardiac pacemaker; K59.00 Constipation, unspecified; Z91.19 Patient's noncompliance with other medical treatment and regimen

== ENCOUNTER 2017-01-25 19:35 | Inpatient (IN) | payer MEDICARE, BC ==
[~2017-01-25] VITALS: Ht 182.9 cm; Wt 79.4 kg
--- NOTE | 2017-01-25 18:35 | NUR ---
RECIEVED/WC FROM MED 2;ALERT.ORIENTED TO SURROUNDINGS.INCONT OF LOOSE BM,CLEANED AND POSITIONED IN BED.
--- NOTE | 2017-01-25 19:25 | NUR ---
PT REPORTED TO ARRIVE ON UNIT AT 1835 WITH STAFF AND FAMILY. ASSISTED TO BED. PT WITH FREQUENT BOWEL MOVEMENTS MOSTLY LOOSE. PT URINATES USING IN/OUT CATH. AND ABLE TO DO SELF CATH IN SUPPLIES ARE IN REACH. NO COMPLANTS OF PAIN. CALL LIGHT IN REACH.
[~2017-01-25 19:35] MED LIST changes: +ALBUTEROL2.5 MG/3 M UPD; +ATROVENT 0.02%2.5 ML UPD; +AZELASTINE137 MCG/0. NASAL; +BOUDREAUXS BUTT60 GM TOPICAL; +COUMADIN4 MG PO; +FLORAJEN3 CAPS460 MG PO; +FLUTICASONE PRO16 GM NASAL; +GAS-X80 MG PO; +GLIMEPIRIDE2 MG PO; +HUMULIN R100 U/ML SC; +LANTUS INSULIN10 ML SC; +LUTEIN20 MG PO; +MUCINEX DM ER1 EAC1 PO; +PREDNISONE20 MG PO; +PROTONIX40 MG PO; +PULMICORT0.5 MG/21 UPD; +RACEMIC EPI 2.0.5 ML INH; +SALINE NASAL SP45 ML NASAL; +SINGULAIR10 MG PO; +TESSALON PERLE100 MG PO; +ULTRAM50 MG PO; +VENTOLIN HFA18 GM INH
[2017-01-25 23:40] VITALS: BP 123/61
--- NOTE | 2017-01-26 01:40 | NUR ---
PT IN BED WITH EYES CLOSED AND CHEST RISING. CPAP IN USE WITH 2L O2. BM ARE LESS FREQUENT. PT CALLS FOR BEDPAN WITH ASSISTANCE WITH PERICARE PROVIDED. NO COMPLAINTS OF PAIN. CALL LIGHT IN REACH.
[2017-01-26 06:21] LABS: BASOPHILS 0.1 % (0.0-2.0); EOSINOPHILS 0.8 % (0-7); HEMATOCRIT 36.5 % (42.0-54.0); HEMOGLOBIN 11.4 g/dL (13.5-17.5); LYMPHOCYTES 16.8 % (15-50); MCH 28.4 pg (26.0-34.0); MCHC 31.2 g/dL (31.0-37.0); MCV 90.8 fL (80.0-100.0); MEAN PLATELET VOLUME 9.4 fL (7.4-10.4); MONOCYTES 12.6 % (2-11); NEUTROPHILS 68.7 % (40-80); PLATELET COUNT 299 10x3/uL (130-400); RBC 4.02 10x6/uL (4.20-6.10); RDW 14.4 % (11.5-14.5); WBC 10.1 10x3/uL (4.8-10.8)
[2017-01-26 06:35] LABS: INR 1.64 (0.85-1.17); PROTIME 19.4 SECONDS (11.6-15.0)
[2017-01-26 07:04] LABS: CALCIUM 8.8 mg/dL (8.5-10.1); CHLORIDE - SERUM 97 mmol/L (98-107); CREATININE - SERUM 0.9 mg/dL (0.6-1.3); SODIUM 142 mmol/L (136-145); UREA NITROGEN 36 mg/dL (7-18); eGFR NON AFRICAN AMERICAN 85 mL/min (90-120)
[2017-01-26 07:08] LABS: CALC OSMOLALITY 290 mosm/kg (275-300); GLUCOSE 93 mg/dL (74-106)
--- NOTE | 2017-01-26 07:30 | NUR ---
SITTING UP IN BED. USES OVERHEAD FRAME AND TRAPIEZE TO HAVE POSITION CHANGE. DOES SELF CATH FOR URINE RELEASE. ABLE TO CONTROL BOWELS. USES BEDPAIN. HAS RT AKA. IS VERY [place].
[2017-01-26 10:27] VITALS: BP 127/69
--- NOTE | 2017-01-26 12:44 | NUR ---
SITTING UP IN BED EATING LUNCH. MAX ASST TO TRANSFER FROM W/C BACK TO BED.
[2017-01-26 13:38] VITALS: Ht 182.9 cm; Wt 79.4 kg
--- NOTE | 2017-01-26 17:50 | NUR ---
SITTING UP IN BED EATING SUPPER. WEARING OXYGEN. IN ROOM. IS GROSSLY WEAK
[2017-01-26 19:15] VITALS: BP 128/63
--- NOTE | 2017-01-26 19:35 | NUR ---
PT. IN BED WITH HOB UP FOR COMFORT AND HAS HIS CPAP MASK ON. ASSESSMENT COMPLETED. PT. HAS NO VOICED NEEDS AFTER I SHOWED HIM IN HIS BEDSIDE DRAWER HAS HIS EXTRA SELF CATH CATHETERS. CALL LIGHT REMAINS WITHIN REACH.
--- NOTE | 2017-01-26 21:32 | NUR ---
PT. IN BED WITH HOB UP FOR COMFORT AND LLE ELEVATED UP ON PILLOW. NO VOICED NEEDS AT THIS TIME AND HAS HIS CALL LIGHT WITHIN REACH. PT. HAVING DIFFICULTY KEEPING HIS CPAP ON SECURELY AND IT ALARMS FREQUENTLY. WHEN ASKED IF HE NEEDS HELP HE DECLINED.
--- NOTE | 2017-01-26 23:33 | NUR ---
PT. IN BED WITH HOB UP FOR COMFORT AND EYES ARE CLOSED AND CPAP ON WITHOUT ALARMS. CALL LIGHT WITHIN REACH.
--- NOTE | 2017-01-27 01:26 | NUR ---
PT. IN BED WITH HOB UP FOR COMFORT AND EYES ARE CLOSED AND CPAP MASK REMAINS IN PLACE. CALL LIGHT WITHIN REACH.
--- NOTE | 2017-01-27 03:17 | NUR ---
PT. IN BED WITH HOB UP FOR COMFORT WITH CPAP MASK ON. EYES CLOSED AND RESP. EVEN. CALL LIGHT IS WITHIN REACH.
[2017-01-27 06:37] LABS: INR 1.77 (0.85-1.17); PROTIME 20.6 SECONDS (11.6-15.0)
--- NOTE | 2017-01-27 07:30 | NUR ---
HAS DIARRHEA THIS MORNING. INCONT OF BOWEL.
[2017-01-27 08:31] VITALS: BP 165/78
--- NOTE | 2017-01-27 11:59 | NUR ---
STILL HAVING VERY SOFT STOOLS. IS NOT WATTERY BUT LOOSE AND NON FORMED. PT UPSET AND EMBARRASED AT NEEDING ASST WITH BOWEL. NO SKIN BREAKDOWN NOTED. HE SELF CATHS NEEDED. HE USES OVERHEAD FRAME AND TRAPEZE FOR MOTION ASST. STILL WEARING OXYGEN ALL THE TIME
--- NOTE | 2017-01-27 18:13 | NUR ---
SITTING UP IN BED EATING SUPPER. MAX ASST WITH ALL TRANSFERS.
--- NOTE | 2017-01-27 18:16 | NUR ---
SITTING UP BED EATING SUPPER. DENIES PAIN
[2017-01-27 21:53] VITALS: BP 139/76
--- NOTE | 2017-01-27 23:12 | NUR ---
PT. IN BED LYING ON HIS RIGHT SIDE WITH CPAP MASK ON. EYES ARE CLOSED AND RESP. EVEN. CALL LIGHT WITHIN REACH.
--- NOTE | 2017-01-27 23:26 | NUR ---
DAUGHTER HAS JUST ARRIVED FOR A VISIT. PT. IN BED WITH HOB UP FOR COMFORT. ASSESSMENT COMPLETED. NO VOICED NEEDS AT THIS TIME. CALL LIGHT WITHIN REACH.
--- NOTE | 2017-01-28 02:03 | NUR ---
PT. IN BED WITH HOB UP FOR COMFORT AND IS LYING ON HIS RIGHT SIDE. PT. HAS HIS CPCP MASK ON. PT. AWAKE AND WAVED AT ME I WAS COMING BACK FROM CHECKING ON PT. NEXT TO HIM. PT. HAS NO VOICED NEEDS AND HIS CALL LIGHT IS WITHIN REACH.
--- NOTE | 2017-01-28 04:07 | NUR ---
PT. IN BED WITH HOB UP AND PT. IS LYING ON HIS RIGHT SIDE. CPAP MASK IS ON PT. AND OCCASIONALLY YOU WILL HEAR AN ALARM. EYES ARE CLOSED AND RESP. EVEN. CALL LIGHT WITHIN REACH.
[2017-01-28 06:42] LABS: BASOPHILS 0.2 % (0.0-2.0); EOSINOPHILS 0.9 % (0-7); HEMATOCRIT 36.4 % (42.0-54.0); HEMOGLOBIN 11.5 g/dL (13.5-17.5); IMMATURE GRANULOCYTES 0.6 % (0-5); MCH 28.8 pg (26.0-34.0); MCHC 31.6 g/dL (31.0-37.0); MEAN PLATELET VOLUME 9.1 fL (7.4-10.4); MONOCYTES 10.8 % (2-11); NEUTROPHILS 70.5 % (40-80); PLATELET COUNT 250 10x3/uL (130-400); RDW 14.5 % (11.5-14.5); WBC 8.9 10x3/uL (4.8-10.8)
[2017-01-28 06:56] LABS: CALCIUM 8.8 mg/dL (8.5-10.1); CHLORIDE - SERUM 102 mmol/L (98-107); CREATININE - SERUM 0.9 mg/dL (0.6-1.3); POTASSIUM - SERUM 3.3 mmol/L (3.5-5.1); SODIUM 147 mmol/L (136-145); UREA NITROGEN 34 mg/dL (7-18); eGFR NON AFRICAN AMERICAN 85 mL/min (90-120)
[2017-01-28 07:01] LABS: INR 2.48 (0.85-1.17); PROTIME 26.9 SECONDS (11.6-15.0)
[2017-01-28 07:07] LABS: CALC OSMOLALITY 297 mosm/kg (275-300); GLUCOSE 66 mg/dL (74-106)
--- NOTE | 2017-01-28 07:30 | NUR ---
SITTING UP IN BED WITH BIPAP IN USE. EYES CLOSED. NO S/S DISTRESS.
[2017-01-28 09:20] LABS: APPEARANCE HAZY (CLEAR); COLOR STRAW (YELLOW); LEUKOCYTE ESTERASE 1+ (NEGATIVE); NITRITE NEGATIVE (NEGATIVE)
[2017-01-28 09:21] LABS: BILIRUBIN NEGATIVE (NEGATIVE); GLUCOSE 50 mg/dL (NEGATIVE); KETONE NEGATIVE (NEGATIVE); PROTEIN NEGATIVE (NEGATIVE); UROBILINOGEN NORMAL (NORMAL)
[2017-01-28 09:24] LABS: EPITHELIAL CELLS RARE /hpf (0-5); RED CELLS - URINE OCC /hpf (0-5)
[2017-01-28 09:25] LABS: BACTERIA FEW /hpf (NONE SEEN)
[2017-01-28 10:15] VITALS: BP 154/78
--- NOTE | 2017-01-28 10:15 | NUR ---
SITTING UP WEARING OXYGEN. DENIES NEEDS OR PAIN. DENIES DIARRHEA
--- NOTE | 2017-01-28 11:58 | NUR ---
FSBS OVER 400. DR JOHNSON NOTIFIED. NO NEW ORDERS
--- NOTE | 2017-01-28 19:40 | NUR ---
PT RECEIVED IN BED WITH EYES OPEN WATCHING TV. NO COMPLAINTS OR CONCERNS MADE KNOWN. CALL LIGHT IN REACH.
[2017-01-28 22:44] VITALS: BP 110/56
--- NOTE | 2017-01-29 01:19 | NUR ---
PT IN BED WITH EYES CLOSED AND CHEST RISING. CPAP IN USE. PT USED URINAL X2 AT THIS TIME WITH NO REPORTS OF NEEDING BM AT THIS TIME. WILL CONTINUE TO OBSERVE. CALL LIGHT IN REACH.
--- NOTE | 2017-01-29 05:49 | NUR ---
PT IN BED WITH EYES OPEN. CPAP REMOVED AND USING NASAL CANNULA AT 2LPM. FSBS 59 WITH APPLE JUICE AND RUDDY CRACKERS GIVEN. FSBS RECHECKED 30 MINS LATER AT 106. NO OTHER CONCERNS AT THIS TIME. CALL LIGHT IN REACH.
[2017-01-29 06:57] LABS: INR 3.33 (0.85-1.17); PROTIME 34.1 SECONDS (11.6-15.0)
[2017-01-29 07:00] VITALS: BP 121/60
--- NOTE | 2017-01-29 08:00 | NUR ---
SHIFT ASSMT.COMPLETED.DENIES NEEDS.O2 ON @ 2L/NC.
--- NOTE | 2017-01-29 12:00 | NUR ---
SITTING UP EATING LUNCH.CL IN REACH.
--- NOTE | 2017-01-29 15:00 | NUR ---
OFF OF CPAP.TALKING ON PHONE.
--- NOTE | 2017-01-29 16:00 | NUR ---
ASSISTED TO BED.PLACED ON CPAP MACHINE.CL IN REACH.
--- NOTE | 2017-01-29 19:55 | NUR ---
PT RECEIVED IN BED WITH EYES CLOSED AND CHEST RISING. EASILY AROUSED TO VERBAL STIMULI. NO NEEDS OR CONCERNS MADE KNOWN AT THIS TIME. CALL LIGHT IN REACH.
--- NOTE | 2017-01-29 22:38 | NUR ---
PT IN BED WITH EYES CLOSED AND CHEST RISING. CPAP IN USE. NO SIGN/SYMPTOMS OF DISTRESS NOTED. CALL LIGHT IN REACH.
[2017-01-29 23:31] VITALS: BP 122/70
--- NOTE | 2017-01-30 01:45 | NUR ---
PT IN BED WITH EYES OPEN WATCHING TV. REMOVING CPAP MORE FREQUENT TONIGHT WATER KEPTIN REACH FOR DRY MOUTH. NO OTHER CONCERNS MADE KNOWN. CALL LIGHT IN REACH. WILL CONTINUE TO OBSERVE.
--- NOTE | 2017-01-30 05:49 | NUR ---
PT IN BED WATCHING TV. USING NASAL CANULA WITH 2 LPM. FSBS 69 AT 0518. RUDDY CRACKERS GIVEN WITH 4OZ JUICE WITH FSBS 81 AT 0547. INSULIN HELD. ORAL MEDICATIONS GIVEN PER MAR WITHOUT DIFFICULTY. NO OTHER CONCERNS NOTED AT THIS TIME. CALL LIGHT IN REACH.
[2017-01-30 07:00] VITALS: BP 133/72
[2017-01-30 07:02] LABS: INR 4.37 (0.85-1.17); PROTIME 42.4 SECONDS (11.6-15.0)
--- NOTE | 2017-01-30 08:00 | NUR ---
SHIFT ASSMT COMPLETED.DENIES NEEDS.MEAL SET-UP PROVIDED.CL IN REACH.
--- NOTE | 2017-01-30 12:00 | NUR ---
ASSISTED UP OOB WITH SLIDE BOARD. AT BEDSIDE.CL IN REACH.
--- NOTE | 2017-01-30 16:00 | NUR ---
VISITING WITH FAMILY AT BEDSIDE.
--- NOTE | 2017-01-30 20:15 | NUR ---
PT RECEIVED IN BED WITH EYES OPEN WITH CPAP ON. REQUEST TO REMOVE CPAT AND SWITCH TO NASAL CANULA. ASSIST GIVEN WITH SELF CATH. 400ML OUTPUT NOTED. NO OTHER NEEDS OR CONCERNS NOTED. CALL LIGHTIN REACH. WILL CONTINUE TO OBSERVE.
[2017-01-31] VITALS: BP 126/62
--- NOTE | 2017-01-31 01:21 | NUR ---
PT IN BED WITH EYES CLOSED AND CHEST RISING. CPAP IN USE. BED BATH GIVEN WITH LINENS CHANGED. LOOSE STOOL NOTED WITH PAD CHANGED AND PLACED ON BED RUTH PER REQUEST. ADDITIONAL LOOSE STOOL NOTED. REQUEST 3 MORE TIMES FOR BED RUTH WITHOUT OUTPUT NOTED BEFORE BATH WAS GIVEN. NO OTHER NEEDS OR CONCERNS MADE KNOWN. CALL LIGHT IN REACH. WILL CONTINUE TO OBSERVE.
--- NOTE | 2017-01-31 05:01 | NUR ---
PT IN BED WATCHING TV. NO COMPLAINTS OR CONCERNS MADE KNOWN. CALL LIGHT IN REACH.
[2017-01-31 07:06] LABS: BASOPHILS 0.1 % (0-2); EOSINOPHILS 0.6 % (0-7); HEMATOCRIT 38.4 % (42.0-54.0); HEMOGLOBIN 12.2 g/dL (13.5-17.5); IMMATURE GRANULOCYTES 0.3 % (0-5); LYMPHOCYTES 15.5 % (15-50); MCHC 31.8 g/dL (31.0-37.0); MCV 91.2 fL (80.0-100.0); MEAN PLATELET VOLUME 9.5 fL (7.4-10.4); MONOCYTES 8.7 % (2-11); NEUTROPHILS 74.8 % (40-80); PLATELET COUNT 218 10x3/uL (130-400); RBC 4.21 10x6/uL (4.20-6.10); RDW 14.5 % (11.5-14.5); WBC 10.1 10x3/uL (4.8-10.8)
[2017-01-31 07:29] LABS: CALC OSMOLALITY 285 mosm/kg (275-300); CALCIUM 8.6 mg/dL (8.5-10.1); CARBON DIOXIDE 39.2 mmol/L (21.0-32.0); CHLORIDE - SERUM 100 mmol/L (98-107); CREATININE - SERUM 0.9 mg/dL (0.6-1.3); GLUCOSE 71 mg/dL (74-106); SODIUM 141 mmol/L (136-145); UREA NITROGEN 33 mg/dL (7-18); eGFR NON AFRICAN AMERICAN 85 mL/min (90-120)
[2017-01-31 07:30] LABS: INR 4.16 (0.85-1.17); PROTIME 40.8 SECONDS (11.6-15.0)
[2017-01-31 08:13] VITALS: BP 152/80
--- NOTE | 2017-01-31 09:36 | NUR ---
SITTING UP IN BED RESTING. ATE BREAKFAST AND DONE IN/OUT CATH ON SELF. MAX ASST WITH TRANSFERS. COCCYX IS RED, DSG IN PLACE
--- NOTE | 2017-01-31 17:31 | NUR ---
SITTING UP IN BED EATING SUPPER. JUST HAD CPAP ON FOR HIS NAP. USES BEDPAN. X2 SO FAR TODAY
[2017-01-31 20:18] VITALS: BP 144/72
--- NOTE | 2017-01-31 21:07 | NUR ---
PT RECEIVED IN BED WITH EYES OPEN. ASSISTANCE GIVEN WITH HEAD GEAR ON CPAP WHICH HAD FALLEN OFF. NO OTHER CONCERNS MADE KNOWN AT THIS TIME. CALL LIGHT IN REACH. WILL CONTINUE TO OBSERVE.
--- NOTE | 2017-01-31 23:19 | NUR ---
PT IN BED WITH EYES CLOSED AND CHEST RISING. CPAP IN USE. NO SIGN/SYMPTOMS OF DISTRESS NOTED. CALL LIGHT IN REACH. WILL CONTINUE TO OBSERVE.
--- NOTE | 2017-02-01 01:11 | NUR ---
PT IN BED WITH EYES CLOSED AND CHEST RISING. PT REMOVED CPAP AND IS USING NASAL CANULA AT 2LPM. NO SIGN/SYMPTOMS OF DISTRESS NOTED. CALL LIGHT IN REACH. WILL CONTINUE TO OBSERVE.
--- NOTE | 2017-02-01 06:16 | NUR ---
PT IN BED WITH EYES OPEN. SELF CATHED WITH 575ML OUTPUT. RECEIVED AM MEDICATIONS PER MAR WITHOUT DIFFICULTY. NO CONCERNS OR NEEDS MADE KNOWN. CALL LIGHT IN REACH.
[2017-02-01 07:05] LABS: INR 3.85 (0.85-1.17); PROTIME 38.4 SECONDS (11.6-15.0)
--- NOTE | 2017-02-01 07:30 | NUR ---
SITTING UP IN BED RESTING QUIETLY WITH CPAP MACHING IN USE. NO S/S DISTRESS. RIGHT AKA NOTED. IN/OUT CATHS IN REACH ON BED SIDE TABLE.
[2017-02-01 08:20] VITALS: BP 131/69
--- NOTE | 2017-02-01 12:07 | NUR ---
VISITING AND SITTING IN ROOM BY PT'S BED. HE IS EATING LUNCH. DENIES N/V AND LOOSE STOOLS SLOWED DOWN SO FAR TOD[place]Y. HE REMAINS MAX ASST WITH ADL'S
--- NOTE | 2017-02-01 12:12 | RHP ---
PATIENT: ROCIO SHAH MEDICAL RECORD: [id number] ACCOUNT: [id number] LOCATION:[facility]1118 : 30 ADMISSION DATE: 01/25/17 REHABILITATION HISTORY AND PHYSICAL EXAMINATION POST ADMISSION PHYSICIAN EXAMINATION DATE OF ADMISSION: 01/25/2017 ADMITTING DIAGNOSES: Chronic obstructive pulmonary disease with acute exacerbation, bsygf-mh-zhnnebx hypoxic and hypercapnic respiratory failure. HISTORY OF PRESENT ILLNESS: The patient is inpatient rehab for COPD and O2-dependence with acute exacerbation, csopx-zs-ywlpxzv hypoxic and hypercapnic respiratory failure. He is an 86-year-old gentleman, who presented to the Emergency Room with acute mental status changes, began having difficulty breathing the day prior to admit on January 13. He has got a history of TIA, neuropathy, diabetes, permanent pacemaker placement, atrial fib, which he is on Coumadin for, coronary artery disease. He is post-stent times 2. He has got peripheral vascular disease, status post lower extremity ____ and right vgdqu-sth-lhvy amputation. 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 He lives at home with his . He has a right lower extremity amputation and does not use his prosthesis, but was able to transfer moderately independently and uses wheelchair independently. He has got a stage II area to his buttocks and unstageable area to his left heel. He is currently standby assist to max assist with ADLs, moderate assist to max assist with mobility. His is unable to transfer the patient being max assist at this time. She and the patient want the patient to return home and get back to his prior level of function and will probably improve if any way possible. COMORBIDITIES: Include oropharyngeal dysphagia, tcpag-cr-onskgwp systolic congestive heart failure, coronary artery disease, AFib, neurogenic bladder, chronic pyelonephritis, obstructive sleep apnea with noncompliance with CPAP in the past, acute mental status changes, rhinitis, sinusitis, diabetes mellitus type 2, anemia, hyperlipidemia and melanoma removal. PAST MEDICAL HISTORY: Significant for neuropathy, TIA times 3, diabetes, congestive heart failure, AFib, COPD, pneumonia, apnea, skin cancer, gastroesophageal reflux disease, coronary artery disease, and peripheral vascular disease. PAST SURGICAL HISTORY: Includes pacemaker placement, heart stents. 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 ALLERGIES: DEMEROL, CIPRO, PLAVIX, BIOLOX, VERSED, PENICILLIN AND ANY TYPE OF NONSTEROIDAL ANTI-INFLAMMATORIES. HABITS: Denies alcohol or tobacco use at this time. FAMILY HISTORY: Noncontributory. HISTORY AND PHYSICAL [id number] ROCIO SHAH SOCIAL HISTORY: The patient hopes to return back home and get back to his prior level of function and return with his . REVIEW OF SYSTEMS: GENERAL: Does complain of weakness. HEENT: Does complain of cold, cough, congestion. CARDIOVASCULAR: Denies any chest pain. LUNGS: Does complain of shortness of breath. PHYSICAL EXAMINATION: VITAL SIGNS: Stable, afebrile. GENERAL: An elderly gentleman, in no acute distress, alert upon exam. HEENT: Normocephalic, atraumatic. Mucosa moist. NECK: Supple. No lymphadenopathy. LUNGS: Coarse breath sounds bilaterally. CARDIOVASCULAR: Irregular rate and rhythm. ABDOMEN: Benign. EXTREMITIES: Does have a noted right xpydx-lvo-vyuh amputation. NEUROLOGIC: Does have changes consistent with neuropathy with decreased sensation. LABORATORY DATA: His white count is 10.1, H&H of 11 and 36, and platelet count was noted to be 299. His INR is 1.64. Sodium 142, potassium 3.0, BUN and creatinine of 36 and 0.9, blood sugar is noted to be 193. ASSESSMENT: This is an 86-year-old gentleman admitted to the rehab with a working diagnosis of ujfgk-va-yeglcly exacerbation of chronic obstructive pulmonary disease and also obvious debility. The patient has potential to make improvement. We instituted the following multidisciplinary therapies including, but not limited to physical, occupational, respiratory, speech, nutritional services, prosthetics and orthotics. Given his complex condition and risk for more complications, rehabilitation services cannot be provided at a lower level of care such as a group home facility. PLAN: 1. Admit to [facility] rehab for intensive inpatient therapy to include the following disciplines: A. Physical therapy to improve gait, all transfer skills and bed mobility to a modified independent level. B. Occupational therapy to improve activities of daily living to a modified independent level. C. Case management to assist with discharge planning and placement options. D. Nutrition to assist with nutritional needs. E. Rehabilitation nursing to assist in monitoring the patient's underlying medical conditions and to assist with any type of bowel or bladder management. 2. The patient's current medication and medical care will be continued. 3. The patient was placed on standard fall precautions. 4. We will go ahead and adjust his warfarin levels to get his INR therapeutic. We will go ahead and replace his potassium. I am going to go ahead and discuss this patient during care team staff meeting this week and we will treat appropriately. TRANSINT:[id number] Voice Confirmation ID: [id number] DOCUMENT ID: [id number] HISTORY AND PHYSICAL [id number] ROCIO SHAH SCOTT MD at 1212 CC: [id number] DICTATION DATE: 01/26/17 0844 SALESPERSON [employer]: 01/26/17 0941 ADM IN [place] [id number] [place] [id number]
--- NOTE | 2017-02-01 13:33 | NUR ---
Nutrition Follow Up: Pt reported that his appetite is good. RD told pt that diet would be changed back to diabetic and pt understood. Pt stated that his gums were still sore. Pt is eating 83% meal avg on a regular soft mechanical diet. +BM 02/01/17. No new wt. Labs reviewed - Glucose elevated. Meds noted including Prednisone, Amaryl, Lasix, Humulin. Pt with good po intake at this time. Will change diet to diabetic mech soft. RD following.
--- NOTE | 2017-02-01 15:15 | NUR ---
WEARING CPAP IN BED AND RESTING QUIETLY. STAYS ON BACK MOST OF THE TIME. NURSE HAS ENCOURAGED PT TO STAY OFF COCCYX AND ROLL SIDE TO SIDE OFTEN. HE DOES NOT COMPLY.
--- NOTE | 2017-02-01 18:13 | NUR ---
SITTING UP IN BED EATING SUPPER. IN ROOM WITH PT. HE IS WEARING OXYGEN AND USES OVER HEAD FRAME AND TRAPIEZE
[2017-02-01 19:16] VITALS: BP 131/61
--- NOTE | 2017-02-01 19:25 | NUR ---
PT RESTING IN BED WATCHING TV, DENIES NEEDS. BED LOW. CL IN REACH.
--- NOTE | 2017-02-01 20:35 | NUR ---
PT HS MEDS ADMINISTERED. PT REQ AND REC'D PRN ANXIETY MEDICATION AND MYLICON. WCTM. BED LOW. CL IN REACH.
--- NOTE | 2017-02-01 22:08 | NUR ---
PT RESTING, EYES CLOSED. CPAP IN PLACE. WCTM. BED LOW. CL IN REACH.
--- NOTE | 2017-02-02 00:15 | NUR ---
PT RESTING, EYES CLOSED. BED LOW. CL IN REACH.
--- NOTE | 2017-02-02 02:25 | NUR ---
PT RESTING, EYES CLOSED. RR ARE EVEN AND UNLABORED. WCTM. BED LOW. CL IN REACH.
--- NOTE | 2017-02-02 04:18 | NUR ---
PT ASSISTED WITH BEDPAN. PT HAD WATERY BM. PT DENIES FURTHER NEEDS. BED LOW. CLI N REACH.
--- NOTE | 2017-02-02 06:07 | NUR ---
PT AM MEDS ADMINISTERED. PT DENIES NEEDS. BED LOW. CL IN REACH.
[2017-02-02 06:27] LABS: BASOPHILS 0.2 % (0-2); EOSINOPHILS 0.8 % (0-7); HEMATOCRIT 36.4 % (42.0-54.0); HEMOGLOBIN 11.6 g/dL (13.5-17.5); IMMATURE GRANULOCYTES 0.2 % (0-5); LYMPHOCYTES 17.7 % (15-50); MCH 28.6 pg (26.0-34.0); MCHC 31.9 g/dL (31.0-37.0); MCV 89.9 fL (80.0-100.0); MEAN PLATELET VOLUME 9.8 fL (7.4-10.4); MONOCYTES 10.6 % (2-11); NEUTROPHILS 70.5 % (40-80); PLATELET COUNT 211 10x3/uL (130-400); RBC 4.05 10x6/uL (4.20-6.10); RDW 14.3 % (11.5-14.5); WBC 8.6 10x3/uL (4.8-10.8)
[2017-02-02 06:41] LABS: ANION GAP 7.7 mmol/L (8-16); CALCIUM 8.8 mg/dL (8.5-10.1); CARBON DIOXIDE 36.3 mmol/L (21.0-32.0); CREATININE - SERUM 1.1 mg/dL (0.6-1.3)
[2017-02-02 06:44] LABS: INR 2.89 (0.85-1.17); PROTIME 30.4 SECONDS (11.6-15.0)
[2017-02-02 07:51] VITALS: BP 130/58
--- NOTE | 2017-02-02 08:00 | NUR ---
SHIFT ASSMT COMPLETED.DENIES NEEDS.BREAKFAST GIVEN.CL IN REACH.
--- NOTE | 2017-02-02 12:00 | NUR ---
EATING LUNCH.DENIES NEEDS.
--- NOTE | 2017-02-02 13:52 | NUR ---
CARE TEAM MEETING: PATIENT TENATIVE DISCHARGE DATE IS 02/08/17. PLANS ARE FOR PATIENT TO RETURN HOME WITH FAMILY. DR. MAXWELL IS PATIENT PCP, [facility]. PATIENT HAS HOSPITAL BED, NEBULIZER, BSC, O2, WALKER, WHEELCHAIR AND SHOWER CHAIR. [facility] WILL RESUME CARE AT DISCHARGE. WILL CONTINUE TO FOLLOW WITH PATIENT UNTIL DISCHARGED
[2017-02-02 20:16] VITALS: BP 132/63
--- NOTE | 2017-02-02 20:43 | NUR ---
RESP DO TREATMENT FOR PT.
--- NOTE | 2017-02-02 21:20 | NUR ---
DAUGHTER TALK TO PT IN ROOM.
--- NOTE | 2017-02-02 23:34 | NUR ---
PT REST QUIETLY IN BED WITH EYE CLOSE, BED IN LOW POSITION, CALL LIGHT WITHIN REACH.
--- NOTE | 2017-02-03 00:56 | NUR ---
PT REST QUIETLY, EYE CLOSE, BED IN LOW POSITION,CALL LIGHT WITHIN REACH.
--- NOTE | 2017-02-03 01:30 | NUR ---
BIPAP ALARMING. SMALL AIR LEAK AT HYDRATION TANK. TIGHTENED LOOSE HOSE AND BIPAP RESUMED NORMAL FUNCTION.
--- NOTE | 2017-02-03 03:31 | NUR ---
BIPAP CONTINUE TO ALARM, RESP STAFF TRY TO FIX IT.
--- NOTE | 2017-02-03 04:10 | NUR ---
RESP STAFF FIX THE BIPAP, IT FUNCTION GOOD.
--- NOTE | 2017-02-03 06:36 | NUR ---
PT FSBS 43,NOT GIVEN HUMULIN.AMPARO ONE AND HALF CUP OF ORANGE JUICE AND 2 GRAHAMS CRACKER.CONTINUE MONITOR.
--- NOTE | 2017-02-03 06:58 | NUR ---
RECHECK FSBS IS 56, CONTINUE MONITOR.
[2017-02-03 08:00] VITALS: BP 159/78
--- NOTE | 2017-02-03 08:00 | NUR ---
SHIFT ASSMT COMPLETED.AUDIBLE WHEEZING NOTED. ORDERS PENDING.
[2017-02-03 08:18] LABS: INR 2.01 (0.85-1.17); PROTIME 22.8 SECONDS (11.6-15.0)
--- NOTE | 2017-02-03 08:30 | NUR ---
PORT XRAY DONE.
--- NOTE | 2017-02-03 08:53 | NUR ---
FSBS RECHECKED AFTER BREAKFAST AND NOTED AT 156.SITTING UP IN BED SHAVING.
--- NOTE | 2017-02-03 12:00 | NUR ---
UP IN CHAIR.EATING LUNCH . AT BEDSIDE.CL IN REACH.
[2017-02-03 18:54] VITALS: BP 129/53
--- NOTE | 2017-02-03 19:35 | NUR ---
PT RECEIVED IN BED WITH EYES OPEN WATCHING TV. NASAL CANULA ON AT 2LPM. PLACED ON BEDPAN PER REQUEST WITH SMALL LOOSE STOOL NOTED. NO OTHER CONCERNS MADE KNOWN. CALL LIGHT IN REACH. WILL CONTINUE TO OBSERVE.
--- NOTE | 2017-02-04 01:06 | NUR ---
PT IN BED WITH EYES CLOSED AND CHEST RISING. CPAP IN USE WITH NASAL CANULA OFF. NO CONCERNS AT THIS TIME CALL LIGHT IN REACH. WILL CONTINUE TO OBSERVE.
--- NOTE | 2017-02-04 02:24 | NUR ---
PT IN BED WITH EYES OPEN. DOCUMENTATION STATES PT REFUSED BATH/SHOWER EARLIER AND REQUEST SHOWER AT 0130. BEDBATH GIVEN WITH LINENS CHANGED AND PLACED IN GOWN. PT STATES THAT HE WAS THIRSTY AND ALLOWED TIME TO DRINK BEFORE CPAP PLACEMENT. NO OTHER NEEDS OR CONCERNS AT THIS TIME. CALL LIGHT IN REACH. WILL CONTINUE TO OBSERVE.
[2017-02-04 07:18] LABS: BASOPHILS 0.2 % (0-2); EOSINOPHILS 0.4 % (0-7); HEMATOCRIT 39.4 % (42.0-54.0); HEMOGLOBIN 12.7 g/dL (13.5-17.5); IMMATURE GRANULOCYTES 0.4 % (0-5); LYMPHOCYTES 13.7 % (15-50); MCH 28.5 pg (26.0-34.0); MCHC 32.2 g/dL (31.0-37.0); MCV 88.5 fL (80.0-100.0); MEAN PLATELET VOLUME 9.6 fL (7.4-10.4); MONOCYTES 12.2 % (2-11); NEUTROPHILS 73.1 % (40-80); PLATELET COUNT 216 10x3/uL (130-400); RBC 4.45 10x6/uL (4.20-6.10); RDW 14.1 % (11.5-14.5)
[2017-02-04 07:27] LABS: INR 1.6 (0.85-1.17)
[2017-02-04 07:28] LABS: ANION GAP 5.6 mmol/L (8-16); CALCIUM 9.2 mg/dL (8.5-10.1); CARBON DIOXIDE 37.1 mmol/L (21.0-32.0); CREATININE - SERUM 1.1 mg/dL (0.6-1.3); POTASSIUM - SERUM 3.7 mmol/L (3.5-5.1)
--- NOTE | 2017-02-04 07:30 | NUR ---
RESTING QUIETLY IN BED. EYES CLOSED. CPAP IN PLACE. CALL LIGHT CLOSE.
--- NOTE | 2017-02-04 11:19 | NUR ---
LAYING ON BACK IN BED. OXYGEN IN PLACE. INCONT OF URINE PER PT.
[2017-02-04 11:47] VITALS: BP 146/78
[2017-02-04 18:52] VITALS: BP 150/69
--- NOTE | 2017-02-04 19:40 | NUR ---
PT IN BED WITH HOB UP FOR COMFORT, WATCHING TV, 02 @ 2L VIA N/C. DAUGHTER IN ROOM. SELF IN & OUT CATH. RIGHT AKA. MAX. ASSIST. OVERHEAD TRAPEZE. SEL[place]IK. BED IN LOWEST POSITION AND CALL LIGHT IVAN LEE.
--- NOTE | 2017-02-04 20:37 | NUR ---
BS WAS 454. NOTIFIED EDDY CAAL. EDDY CAAL LEFT A MESSAGE FOR DR. JOHNSON. 20 UNITS OF HUMULIN GIVEN AND 20 UNITS OF LANTUS GIVEN.
--- NOTE | 2017-02-05 00:30 | NUR ---
PT IN BED WITH HOB UP FOR COMFORT, EYES CLOSED, WEARING CPAP, BED IN LOWEST POSITION AND CALL LIGHT WITHIN REACH.
--- NOTE | 2017-02-05 04:28 | NUR ---
PT CALLING OUT "HEY". WENT IN PT'S ROOM AND HE HAD HIS CPAP IN 3 PIECES. I COULDN'T PUT IT BACK TOGETHER SO I PUT HIS O2 ON.
--- NOTE | 2017-02-05 05:47 | NUR ---
PT APPEARED TO HAVE SWEAT WHICH DAMPENED HIS BEDDING AND SHIRT. LINEN CHANGED AND CLOTHING CHANGED WITH MAX ASSIST.
--- NOTE | 2017-02-05 06:11 | NUR ---
BS WAS 59. JELLO AND ORANGE JUICE GIVEN.
[2017-02-05 07:00] VITALS: BP 98/72
--- NOTE | 2017-02-05 07:30 | NUR ---
LAYING IN BED WITH EYES CLOSED. CPAP IN USE. NO S/S DISTRESS OR NEEDS. CALL LIGHT IN REACH
--- NOTE | 2017-02-05 10:51 | NUR ---
SITTING UP IN BED WATCHING TV. O2 VIA NC IN USE. DOES OWN IN/OUT CATHS. MAX ASST WITH ALL ADL'S.
--- NOTE | 2017-02-05 17:13 | NUR ---
SITTING UP IN BED TALKING WITH VISITOR. DENIES NEEDS.
--- NOTE | 2017-02-05 18:15 | NUR ---
SITTING UP IN BED WATCHING TV. DENIES PAIN. CALL LIGHT IN REACH
--- NOTE | 2017-02-05 19:10 | NUR ---
PT IN BED WITH HOB UP FOR COMFORT, WATCHING TV, PT SELF IN AND OUT CATH'S, 02 @ 2L VIA N/C, NO COMPLAINTS, BED IN LOWEST POSITION AND CALL LIGHT WITHIN REACH.
[2017-02-05 19:21] VITALS: BP 131/67
--- NOTE | 2017-02-06 04:01 | NUR ---
PT RESTING, EYES CLOSED, PT DOES AUDIBLE GROANS, BIPAP MACHINE BEEPING, ADJUSTED FACIAL MASK,
--- NOTE | 2017-02-06 04:34 | NUR ---
PT YELLING OUT, WORDS ARE GARBLED AND NOT MAKING ANY SENSE, WENT INTO ROOM AND BIPAP WAS IN PIECES. ADJUSTED PT IN BED. BED IS WET FROM PT SWEATING. GOING TO TAKE PT'S BS.
--- NOTE | 2017-02-06 04:47 | NUR ---
BS WAS 44. PT DRANK AN ORANGE JUICE.
--- NOTE | 2017-02-06 05:10 | NUR ---
BS WAS 50. PT ATE A VANILLA PUDDING. WILL CONTINUE TO MONITOR.
--- NOTE | 2017-02-06 05:42 | NUR ---
BS WAS 67. PT DRANK AN ORANGE JUICE. WILL CONTINUE TO MONITOR.
[2017-02-06 07:00] VITALS: BP 101/49
--- NOTE | 2017-02-06 07:30 | NUR ---
SITTING UP IN BED WATCHING TV. OXYGEN IN USE. MAX ASST REQUIRED WITH ALL ADL'S. USES OVER HEAD FRAME AND TRAPIEZE FOR MOVEMENT ASST. RT AKA. DOES OWN IN/OUT CATHS.
--- NOTE | 2017-02-06 10:47 | NUR ---
RESTING QUIETLY IN BED. EYES CLOSED. CALL LIGHT IN REACH
--- NOTE | 2017-02-06 12:08 | NUR ---
SITTING UP IN BED GETTING BREATHING TX.
--- NOTE | 2017-02-06 17:42 | NUR ---
SITTING UP IN BED EATING SUPPER. FAMILY IN ROOM VISITING.
[2017-02-06 19:37] VITALS: BP 147/71
--- NOTE | 2017-02-06 20:22 | NUR ---
PT RECEIVED UP IN WHEELCHAIR WITH DAUGHTER PUSHING. NO COMPLAINTS OF PAIN OR DISCOMFORT NOTED. IN ROOM AND TRANSFERED TO BED USING TRANSFER BOARD WITHOUT DIFFICULTY. NO OTHER CONCERNS OR NEEDS MADE KNOWN. WILL CONTINUE TO OBSERVE. CALL LIGHT IN REACH.
--- NOTE | 2017-02-06 23:14 | NUR ---
PT IN BED WITH EYES CLOSED AND CHEST RISING. CPAP ON AT THIS TIME. NITRO PATCH REMOVED FROM LEFT UPPER CHEST. SNACK GIVEN. MEDICATIONS GIVEN PER MAR. NO OTHER NEEDS MADE KNOWN. CALL LIGHT IN REACH. WILL CONTINUE TO OBSERVE.
--- NOTE | 2017-02-07 03:13 | NUR ---
PT IN BED WITH EYES OPEN REQUEST BEDPAN. NO OTHER NEEDS OR CONCERNS MADE KNOWN AT THIS TIME. CALL LIGHT IN REACH. WILL CONTINUE TO OBSERVE.
--- NOTE | 2017-02-07 06:12 | NUR ---
PT IN BED WITH EYES CLOSED AND CHEST RISING. AM FSBS 67 WITH JUICE AND RUDDY CRACKERS GIVEN AND RECHECKED 142. NO OTHER CONCERNS MADE KNOWN. CALL LIGHT IN REACH.
[2017-02-07 07:00] LABS: CALC OSMOLALITY 286 mosm/kg (275-300); CALCIUM 8.9 mg/dL (8.5-10.1); CARBON DIOXIDE 37.8 mmol/L (21.0-32.0); CHLORIDE - SERUM 98 mmol/L (98-107); CREATININE - SERUM 0.9 mg/dL (0.6-1.3); GLUCOSE 132 mg/dL (74-106); POTASSIUM - SERUM 3.6 mmol/L (3.5-5.1); SODIUM 139 mmol/L (136-145); UREA NITROGEN 33 mg/dL (7-18); eGFR NON AFRICAN AMERICAN 85 mL/min (90-120)
[2017-02-07 07:07] LABS: BASOPHILS 0.1 % (0-2); EOSINOPHILS 0.8 % (0-7); HEMATOCRIT 37.7 % (42.0-54.0); IMMATURE GRANULOCYTES 0.1 % (0-5); LYMPHOCYTES 21.8 % (15-50); MCH 28.6 pg (26.0-34.0); MCHC 31.8 g/dL (31.0-37.0); MEAN PLATELET VOLUME 9.7 fL (7.4-10.4); MONOCYTES 12.3 % (2-11); NEUTROPHILS 64.9 % (40-80); PLATELET COUNT 196 10x3/uL (130-400); RBC 4.19 10x6/uL (4.20-6.10); RDW 14.5 % (11.5-14.5); WBC 7.7 10x3/uL (4.8-10.8)
[2017-02-07 08:48] VITALS: BP 137/66
--- NOTE | 2017-02-07 09:00 | NUR ---
ASSESSMENT COMPLETED.DENIES PAIN AND NEEDS.NO SIGNS OF ACUTE DISTRESS.CL IN EASY REACH,BED IN LOW POSITION.
[2017-02-07 18:43] VITALS: BP 107/66
--- NOTE | 2017-02-07 19:30 | NUR ---
DAUGHTER IN BED SIDE ADN TALK TO PT.
--- NOTE | 2017-02-07 22:33 | NUR ---
PT REST IN BED WITH EYE CLOSE, BED IN LOW POSITION, CALL LIGHT WITHIN REACH.
--- NOTE | 2017-02-08 02:38 | NUR ---
PT REST QUETLY IN BED WITH EYE CLOSE, BED IN LOW POSITION, CALL LIGHT WINTHIN REACH.
--- NOTE | 2017-02-08 03:50 | NUR ---
PT GOWN AND PILLOW CASE WET, CHANGE GOWN AND PILLOW CASE, CHECK BLOOD SUGAR, FSBS IS 49, TWO CUP ORANGE JUICE AND CRACKER WITH PEANUT BUTTER GIVEN, RECHECK BLOOD SUGAR LATER. MONITOR CLOSELY.
--- NOTE | 2017-02-08 03:50 | NUR ---
PATIENT'S PRIMARY NURSE JUST CLEANSED AND CHANGED PATIENT FROM GENERALIZED, COOL DIAPHORESIS. DIRECTED HER TO TAKE HIS FSBS WHICH IS 49. THEN DIRECTED HER TO GIVE PATIENT 8 OZS ORANGE JUICE AND 6 RUDDY CRAX SQUARES WITH PEANUT BUTTER. PATIENT AT A PEANUT BUTTER SANDWICH AT BEDTIME, BUT DESPIE THIS FSBS STILL HAS DROPPED.
--- NOTE | 2017-02-08 04:49 | NUR ---
RECHECK PT BLOOD SUGAR IS 152.
[2017-02-08 09:11] VITALS: BP 145/64
--- NOTE | 2017-02-08 20:30 | NUR ---
DAUGHTER TALK TO PT IN BED SIDE.
--- NOTE | 2017-02-08 20:35 | NUR ---
PT FSBS IS 299, GIVE 10 UNITS HUMULIN, GIVE HS SNACK: 1 CUP ORANGE JUICE AND CRACKER.
[2017-02-08 20:49] VITALS: BP 127/56
--- NOTE | 2017-02-08 22:43 | NUR ---
PT REST IN BED QUIETLY WITH EYE CLOSE, BED IN LOW POSITION, CALL LIGHT WITHIN REACH.
--- NOTE | 2017-02-09 | NUR ---
ASSISTED PATIENT'S PRIMARY NURSE TO REPOSITION PATIENT HIGHER UP IN BED FOR COMFORT.
--- NOTE | 2017-02-09 04:01 | NUR ---
PT REST QUIETLY IN BED, EYE CLOSE, BED IN LOW POSITION, CALL LIGHT WITHIN REACH.
--- NOTE | 2017-02-09 05:20 | NUR ---
PT FSBS IS 52, GIVE 1 CUP OF ORANGE JUICE AND GRAHAMS CRACKER WITH PEANUT BUTTER, MONITOR PT BLOOD SUGAR CLOSELY.
--- NOTE | 2017-02-09 06:17 | NUR ---
RECHECK PT FSBS IS 159 AFTER 1 CUP OF ORANGE JUICE AND 2 GRAMHAMS CRACKER GIVEN.
--- NOTE | 2017-02-09 07:42 | NUR ---
SITTING UP IN BED EATING BREAKFAST. USES OVERHEAD FRAM AND TRAPIEZE TO SCOOT UP IN BED. DOES OWN IN/OUT SELF CATHS. URINE IS STRAW COLORED. DENIES PAIN OR INCREASED SOB AT REST. WEARS OXYGEN 2LNC. CALL LIGHT IN REACH
[2017-02-09 08:02] LABS: ANION GAP 3.9 mmol/L (8-16); CALCIUM 8.8 mg/dL (8.5-10.1); CARBON DIOXIDE 39.7 mmol/L (21.0-32.0); CREATININE - SERUM 1.1 mg/dL (0.6-1.3); POTASSIUM - SERUM 3.6 mmol/L (3.5-5.1)
[2017-02-09 08:10] LABS: BASOPHILS 0.1 % (0-2); HEMATOCRIT 39.9 % (42.0-54.0); HEMOGLOBIN 12.8 g/dL (13.5-17.5); IMMATURE GRANULOCYTES 0.1 % (0-5); LYMPHOCYTES 17.7 % (15-50); MCH 28.8 pg (26.0-34.0); MCHC 32.1 g/dL (31.0-37.0); MCV 89.7 fL (80.0-100.0); MEAN PLATELET VOLUME 9.8 fL (7.4-10.4); MONOCYTES 11.8 % (2-11); NEUTROPHILS 69.3 % (40-80); PLATELET COUNT 203 10x3/uL (130-400); RBC 4.45 10x6/uL (4.20-6.10); RDW 14.5 % (11.5-14.5); WBC 8.4 10x3/uL (4.8-10.8)
[2017-02-09 08:14] LABS: INR 7.36 (0.85-1.17); PROTIME 64.4 SECONDS (11.6-15.0)
[2017-02-09 09:51] VITALS: BP 128/61
--- NOTE | 2017-02-09 12:12 | NUR ---
SITTING IN W/C IN ROOM EATING LUNCH. IN ROOM WITH PT. STILL WEARING OXYGEN. CURRENTLY WEARING PROSTHESIS. CALL LIGHT AT HAND
--- NOTE | 2017-02-09 13:44 | NUR ---
Nutrition Follow Up: Chart reviewed and pt discussed in rehab staffing. Pt is eating 71% meal avg on a diabetic [facility] soft diet. I>O. +BM 02/07/17. No new wt to assess. Labs reviewed - Glucose elevated and low at times. Meds noted including Lantus, Prednisone, Lasix, Humulin. Pt with good po intake at this time. Rec continue current diet. RD will continue to monitor pt progress.
--- NOTE | 2017-02-09 15:28 | NUR ---
CARE TEAM MEETING: SPOUSE AND DAUGHTER ATTENDED MEETING. PATIENT DISCHRGING HOME IN AM, HE WILL NEED A DROP ARM BEDSIDE COMMODE. AND [facility] WILL RESUME CARE. WILL CONTINUE TO FOLLOW WITH PATIENT UNTIL DISCHARGED
--- NOTE | 2017-02-09 16:36 | NUR ---
PATIENT DISCHARGING HOME WITH FAMILY 02/10/17. [facility] WILL RESUME CARE. [facility] WILL DELIVER A DROP ARM BEDSIDE COMMODE. DR. MAXWELL 02/17/17 @ 3:00. PATIENT CHOICE FORM FOR HOME HEALTH AND [facility] FORM SIGNED, EXPLAINED AND FILED IN CHART.PATIENT EDUCATED ON SAFETY TRANSFERS, PATIENT VOICED UNDERSTANDING. WILL CONTINUE TO FOLLOW WITH PATIENT UNTIL DISCHARGED
[2017-02-09 19:00] VITALS: BP 136/80
--- NOTE | 2017-02-09 19:25 | NUR ---
PT IN BED WITH HOB UP FOR COMFORT, WATCHING TV, ALERT AND ORIENTED, O2 @ 2L VIA N/C. PT HAS NO COMPLAINTS AT THIS TIME. BED IN LOWEST POSITION, SIDE RAILS X2, AND CALL LIGHT WITHIN REACH.
--- NOTE | 2017-02-09 23:24 | NUR ---
PT IN BED WITH HOB UP FOR COMFORT, WATCHING TV. O2 @ 2L. URINAL EMPTIED. BED IN LOWEST POSITION AND CALL LIGHT WITHIN REACH.
--- NOTE | 2017-02-10 01:45 | NUR ---
RESTING IN BED, SUPINE. BIPAP MASK IN PLACE. NO DISTRESS NOTED.
--- NOTE | 2017-02-10 04:24 | NUR ---
PT LYING IN BED, EYES CLOSED, CHEST RISING AND FALLING, 02 @ 2L, BED IN LOWEST POSITION AND CALL LIGHT WITHIN REACH.
--- NOTE | 2017-02-10 07:56 | NUR ---
SITTING UP IN BED EATING BREAKFAST. OXYGEN IN USE. USES OVERHEAD FRAME AND TRAPEZE FOR REPOSITION ASST. DENIES PAIN. CALL LIGHT IN REACH
[2017-02-10 09:39] VITALS: BP 110/64
--- NOTE | 2017-02-10 12:20 | NUR ---
PT EATING LUNCH IN ROOM IN ROOM WITH PT. HE IS SCHEDULED TO D/C TODAY
--- NOTE | 2017-02-10 13:30 | NUR ---
D/C HOME WITH ALL PERSONAL BELONGINGS. TEACHING DONE WITH PT AND ON D/C MEDS AND PENDING MD APPTS. THEY STATE UNDERSTANDING OF TEACHING. MEDS CALLED INTO [facility].
== END 2017-02-10 13:30 | disposition home health service (06) | DRG 190 ==
LOC: D.REHAB 19:35
PROVIDERS: ADMIT Emergency Medicine
DX: J44.1 Chronic obstructive pulmonary disease with (acute) exacerbation (principal); J96.22 Acute and chronic respiratory failure with hypercapnia; J96.21 Acute and chronic respiratory failure with hypoxia; I50.23 Acute on chronic systolic (congestive) heart failure; R13.12 Dysphagia, oropharyngeal phase; I25.10 Atherosclerotic heart disease of native coronary artery without angina pectoris; I48.91 Unspecified atrial fibrillation; G47.33 Obstructive sleep apnea (adult) (pediatric); D64.9 Anemia, unspecified; E78.5 Hyperlipidemia, unspecified; K21.9 Gastro-esophageal reflux disease without esophagitis; Z89.611 Acquired absence of right leg above knee; N31.9 Neuromuscular dysfunction of bladder, unspecified; D03.9 Melanoma in situ, unspecified; G72.9 Myopathy, unspecified

== ENCOUNTER → 2017-02-17 13:54 | Outpatient (CLI) | payer MEDICARE, BC ==
[2017-01-26 13:38] VITALS: BMI 23.7
[2017-02-17 15:41] LABS: INR 2.07 (0.85-1.17); PROTIME 23.3 SECONDS (11.6-15.0)
== END | disposition home or self-care (01) ==
LOC: D.LABREF 13:54
PROVIDERS: Family Medicine
DX: Z51.81 Encounter for therapeutic drug level monitoring (principal); Z79.01 Long term (current) use of anticoagulants

== ENCOUNTER 2017-02-17 14:16 | Inpatient (IN) | payer MEDICARE, BC ==
[~2017-02-17] VITALS: Ht 182.9 cm; Wt 83.9 kg
[2017-02-17 15:17] LABS: BASOPHILS 0 % (0-2); EOSINOPHILS 0.6 % (0-7); HEMATOCRIT 34.9 % (42.0-54.0); HEMOGLOBIN 10.9 g/dL (13.5-17.5); IMMATURE GRANULOCYTES 0.2 % (0-5); LYMPHOCYTES 15.8 % (15-50); MCH 28.5 pg (26.0-34.0); MCHC 31.2 g/dL (31.0-37.0); MCV 91.4 fL (80.0-100.0); MEAN PLATELET VOLUME 9.7 fL (7.4-10.4); MONOCYTES 12.7 % (2-11); NEUTROPHILS 70.7 % (40-80); RBC 3.82 10x6/uL (4.20-6.10); RDW 14.7 % (11.5-14.5); WBC 8.1 10x3/uL (4.8-10.8)
[2017-02-17 15:18] LABS: PLATELET COUNT 136 10x3/uL (130-400)
[2017-02-17 15:43] LABS: ALKALINE PHOSPHATASE 59 U/L (46-116); ALT (SGPT) 21 U/L (10-68); BILIRUBIN - TOTAL 0.79 mg/dL (0.2-1.3); CALC OSMOLALITY 288 mosm/kg (275-300); CALCIUM 8.1 mg/dL (8.5-10.1); CARBON DIOXIDE 36.7 mmol/L (21.0-32.0); CHLORIDE - SERUM 101 mmol/L (98-107); CREATININE - SERUM 0.9 mg/dL (0.6-1.3); GLUCOSE 189 mg/dL (74-106); LIPASE 63 U/L (73-393); POTASSIUM - SERUM 3.1 mmol/L (3.5-5.1); PROTEIN - SERUM 5.9 g/dL (6.4-8.2); SODIUM 141 mmol/L (136-145); UREA NITROGEN 21 mg/dL (7-18); eGFR NON AFRICAN AMERICAN 85 mL/min (90-120)
[2017-02-17 16:56] LABS: APPEARANCE HAZY (CLEAR); BACTERIA MANY /hpf (NONE SEEN); BILIRUBIN NEGATIVE (NEGATIVE); COLOR YELLOW (YELLOW); EPITHELIAL CELLS OCC /hpf (0-5); GLUCOSE NEGATIVE (NEGATIVE); KETONE NEGATIVE (NEGATIVE); LEUKOCYTE ESTERASE TRACE (NEGATIVE); MUCUS <1+ /lpf (NONE SEEN); NITRITE NEGATIVE (NEGATIVE); PROTEIN NEGATIVE (NEGATIVE); SPECIFIC GRAVITY 1.015 (1.005-1.020); UROBILINOGEN NORMAL (NORMAL); WHITE CELLS - URINE 0-5 /hpf (0-5)
--- NOTE | 2017-02-17 18:38 | NUR ---
PT ARRIVED FROM ER IN STABLE CONDITION. ALERT AND ORIENTED X 3. IV IN LEFT HAND AND IS PATENT.
[2017-02-17 20:00] VITALS: BP 148/108
[2017-02-18] VITALS (7 sets, daily range): BP systolic 100–134; BP diastolic 56–83; Ht 182.9 cm; Wt 83.9 kg
[2017-02-18 06:21] LABS: CALCIUM 7.8 mg/dL (8.5-10.1); CARBON DIOXIDE 39.9 mmol/L (21.0-32.0); CHLORIDE - SERUM 100 mmol/L (98-107); CREATININE - SERUM 0.8 mg/dL (0.6-1.3); SODIUM 140 mmol/L (136-145); UREA NITROGEN 18 mg/dL (7-18); eGFR NON AFRICAN AMERICAN > 90 mL/min (90-120)
[2017-02-18 06:26] LABS: CALC OSMOLALITY 279 mosm/kg (275-300); GLUCOSE 72 mg/dL (74-106)
--- NOTE | 2017-02-18 07:35 | NUR ---
ALERT AND ORIENTED, DENIES NEEDS, AT BEDSIDE, STOMACH DISTENDED AND FIRM, BED LOWEST POSITION, CALL LIGHT IN REACH, WILL CONTINUE TO MONITOR
--- NOTE | 2017-02-18 10:30 | NUR ---
ACOSTA CATHATER PLACED PER ORDER, MINIMNAL DISCOMFORT 150 CC OUTPUT,
[2017-02-18 10:33] LABS: BASOPHILS 0.2 % (0-2); EOSINOPHILS 1.1 % (0-7); HEMATOCRIT 32.1 % (42.0-54.0); HEMOGLOBIN 10.2 g/dL (13.5-17.5); IMMATURE GRANULOCYTES 0.2 % (0-5); MCH 28.7 pg (26.0-34.0); MCHC 31.8 g/dL (31.0-37.0); MCV 90.4 fL (80.0-100.0); MEAN PLATELET VOLUME 9.3 fL (7.4-10.4); MONOCYTES 13.5 % (2-11); PLATELET COUNT 126 10x3/uL (130-400); RBC 3.55 10x6/uL (4.20-6.10); RDW 14.5 % (11.5-14.5)
[2017-02-18 10:34] LABS: WBC 5.5 10x3/uL (4.8-10.8)
[2017-02-18 12:00] LABS: INR 1.53 (0.85-1.17); PROTIME 18.3 SECONDS (11.6-15.0)
--- NOTE | 2017-02-18 12:24 | NUR ---
PT AOX4 RESP EVEN AND NONLABORED PT ON 2L/NC IV TO RIGHT WRIST PATENT AND INTACT PT DENIES NEEDS AT THIS TIME. PT HERE FOR ILEUS FOR THIS VISIT. SRX2 CALL LIGHT WITHIN REACH WILL CONTINUE TO MONITOR
--- NOTE | 2017-02-18 19:00 | NUR ---
NGT PLACE TO RIGHT NARE, SURGERY CONSULTED/DR JUNE CALLED, 200CC OUT, STILL HAS COMPLANTS OF DISCOMFORT IN STOMACH
--- NOTE | 2017-02-19 02:15 | NUR ---
REC'D PATIENT LYING IN BED. ADMINISTERED MEDS THROUGH NGT. NO DISTRESS NOTED. DENIED PAIN AT THIS TIME. INSTRUCTED TO CALL IF NEEDED ANYTHING. IS AT BEDSIDE. BED LOW, LOCKED, CALL LIGHT IN REACH.
--- NOTE | 2017-02-19 03:36 | NUR ---
PATIENT RESTING WITH EYES CLOSED AND GUEST AT BEDSIDE. NO VISIBLE SIGNS OF DISTRESS. BED IN LOWEST POSITION AND CALL LIGHT WITHIN REACH.
[2017-02-19 03:55] VITALS: BP 98/81
[2017-02-19 06:43] LABS: BASOPHILS 0.4 % (0-2); EOSINOPHILS 0.9 % (0-7); HEMATOCRIT 32.5 % (42.0-54.0); HEMOGLOBIN 10.2 g/dL (13.5-17.5); IMMATURE GRANULOCYTES 0.2 % (0-5); LYMPHOCYTES 17.3 % (15-50); MCH 28.7 pg (26.0-34.0); MCHC 31.4 g/dL (31.0-37.0); MCV 91.5 fL (80.0-100.0); MEAN PLATELET VOLUME 9.1 fL (7.4-10.4); MONOCYTES 14.9 % (2-11); NEUTROPHILS 66.3 % (40-80); PLATELET COUNT 128 10x3/uL (130-400); RBC 3.55 10x6/uL (4.20-6.10); RDW 14.4 % (11.5-14.5); WBC 4.5 10x3/uL (4.8-10.8)
[2017-02-19 06:53] LABS: INR 1.6 (0.85-1.17)
[2017-02-19 06:59] LABS: ALBUMIN 2.6 g/dL (3.4-5.0); ALKALINE PHOSPHATASE 44 U/L (46-116); ALT (SGPT) 17 U/L (10-68); BILIRUBIN - TOTAL 0.66 mg/dL (0.2-1.3); CALC OSMOLALITY 281 mosm/kg (275-300); CARBON DIOXIDE 39.3 mmol/L (21.0-32.0); CHLORIDE - SERUM 106 mmol/L (98-107); CREATININE - SERUM 0.8 mg/dL (0.6-1.3); GLUCOSE 103 mg/dL (74-106); POTASSIUM - SERUM 3.2 mmol/L (3.5-5.1); PROTEIN - SERUM 5.8 g/dL (6.4-8.2); SODIUM 142 mmol/L (136-145); eGFR NON AFRICAN AMERICAN > 90 mL/min (90-120)
[2017-02-19 07:00] LABS: UREA NITROGEN 9 mg/dL (7-18)
--- NOTE | 2017-02-19 08:15 | NUR ---
PATIENT SITTING UP ON SIDE OF BED ALERT. NO SIGNS OF DISTRESS NOTED. SIDE RAILS UP X2. BED IN LOW POSITION. CALL LIGHT IN REACH.
--- NOTE | 2017-02-19 08:16 | NUR ---
RESTING IN BED, NGT TUBE LOW INTERMITENT SUCTION, DENIES NEEDS, COUGHING SOME PHLEM UP, BED LOWEST POSITION, CALL LIGHT IN REACH, WILL CONTINUE TO MONITOR
[2017-02-19 08:53] VITALS: BP 130/57
[2017-02-19 11:04] VITALS: BP 129/58
[2017-02-19 15:22] VITALS: BP 147/67
--- NOTE | 2017-02-19 19:30 | NUR ---
LYING IN BED AWAKE, ASSESSMENT COMPLETED, NO ACUTE DISTRESS NOTED, NGT IN PLACE TO R NARE TO LIT, SCD ON L LEG, BED LOW, SR'S UP X3, CL IN REACH, AT BEDSIDE, DENIES NEEDS AT THIS TIME, WILL MONITOR
[2017-02-19 20:00] VITALS: BP 140/53
--- NOTE | 2017-02-19 22:18 | NUR ---
MEDS GIVEN PER MAR, ADELAIDA WELL, DENIES NEEDS, CL IN REACH
--- NOTE | 2017-02-19 23:34 | NUR ---
NGT TO LIT, RESTING WITH EYES CLOSED, RESP WITH EASE, NO DISTRESS NOTED, SR'S UP, AT BEDSIDE, CL IN REACH
--- NOTE | 2017-02-20 01:12 | NUR ---
RESTING WITH EYES CLOSED, RESP WITH EASE, NGT TO LIT, SR'S UP, ALARM ON, CL IN REACH
[2017-02-20 04:00] VITALS: BP 116/43
[2017-02-20 06:06] LABS: BASOPHILS 0.2 % (0-2); EOSINOPHILS 1.1 % (0-7); HEMATOCRIT 32.2 % (42.0-54.0); HEMOGLOBIN 9.9 g/dL (13.5-17.5); LYMPHOCYTES 19.5 % (15-50); MCH 28.8 pg (26.0-34.0); MCHC 30.7 g/dL (31.0-37.0); MEAN PLATELET VOLUME 9.1 fL (7.4-10.4); MONOCYTES 13.6 % (2-11); NEUTROPHILS 65.6 % (40-80); PLATELET COUNT 141 10x3/uL (130-400); RBC 3.44 10x6/uL (4.20-6.10); RDW 14.4 % (11.5-14.5); WBC 4.5 10x3/uL (4.8-10.8)
[2017-02-20 06:11] LABS: MCV 93.6 fL (80.0-100.0)
[2017-02-20 06:17] LABS: INR 1.75 (0.85-1.17); PROTIME 20.4 SECONDS (11.6-15.0)
[2017-02-20 06:22] LABS: ALBUMIN 2.7 g/dL (3.4-5.0); ALKALINE PHOSPHATASE 47 U/L (46-116); ALT (SGPT) 17 U/L (10-68); BILIRUBIN - TOTAL 0.63 mg/dL (0.2-1.3); CALC OSMOLALITY 284 mosm/kg (275-300); CALCIUM 8.3 mg/dL (8.5-10.1); CARBON DIOXIDE 39.2 mmol/L (21.0-32.0); CHLORIDE - SERUM 103 mmol/L (98-107); CREATININE - SERUM 0.8 mg/dL (0.6-1.3); POTASSIUM - SERUM 3.1 mmol/L (3.5-5.1); PROTEIN - SERUM 5.8 g/dL (6.4-8.2); SODIUM 145 mmol/L (136-145); UREA NITROGEN 7 mg/dL (7-18); eGFR NON AFRICAN AMERICAN > 90 mL/min (90-120)
[2017-02-20 06:24] LABS: GLUCOSE 70 mg/dL (74-106)
--- NOTE | 2017-02-20 07:05 | NUR ---
40 MEQ KCL GIVEN VIA NG FOR LEVEL OF 3.1 PER PROTOCOL, ADELAIDA WELL
--- NOTE | 2017-02-20 08:00 | NUR ---
DR JUNE TOOK NGT TUBE OUT, STARTED ON CLEAR LIQUID DIET
[2017-02-20 09:21] VITALS: BP 145/65
[2017-02-20 12:12] VITALS: BP 138/54
[2017-02-20 16:44] VITALS: BP 132/64
--- NOTE | 2017-02-20 17:53 | NUR ---
BED LOWEST POSITION, CALL LIGHT IN POSITION, DENIES NEEDS, WILL CONTINUE TO MONITOR,
[2017-02-20 19:00] VITALS: BP 143/75
--- NOTE | 2017-02-20 19:33 | NUR ---
REC'D PATIENT LYING SEMI FOWLERS IN BED. ALERT AND ORIENTED X4. NO DISTRESS NOTED. DENIED FURTHER NEEDS AT THIS TIME. INSTRUCTED TO CALL IF NEEDED ANYTHING. IS AT BEDSIDE. BED LOW, LOCKED, CALL LIGHT IN REACH.
--- NOTE | 2017-02-20 23:00 | NUR ---
PT RESTING WITH EYES CLOSED, NC IN PLACE, NO DISTRESS NOTED, SR'S UP, CL IN REACH, AT BEDSIDE
--- NOTE | 2017-02-20 23:53 | NUR ---
PATIENT IS RESTING IN BED. NO DISTRESS NOTED. DENIED PAIN AT THIS TIME. DENIED FUTHER NEEDS AT THIS TIME. IS AT BEDSIDE. INSTRUCTED TO CALL IF NEEDED ANYTHING. BED LOW, LOCKED, CALL LIGHT IN REACH.
[2017-02-21 04:00] VITALS: BP 144/62
[2017-02-21 06:10] LABS: BASOPHILS 0.5 % (0-2); EOSINOPHILS 2.5 % (0-7); HEMATOCRIT 32.8 % (42.0-54.0); HEMOGLOBIN 10.3 g/dL (13.5-17.5); LYMPHOCYTES 19.7 % (15-50); MCH 28.8 pg (26.0-34.0); MCHC 31.4 g/dL (31.0-37.0); MONOCYTES 14.9 % (2-11); NEUTROPHILS 62.4 % (40-80); PLATELET COUNT 145 10x3/uL (130-400); RBC 3.58 10x6/uL (4.20-6.10); RDW 14.3 % (11.5-14.5)
[2017-02-21 06:13] LABS: MCV 91.6 fL (80.0-100.0)
[2017-02-21 06:31] LABS: INR 2.44 (0.85-1.17); PROTIME 26.6 SECONDS (11.6-15.0)
[2017-02-21 06:43] LABS: ALBUMIN 2.7 g/dL (3.4-5.0); ALKALINE PHOSPHATASE 46 U/L (46-116); ALT (SGPT) 18 U/L (10-68); BILIRUBIN - TOTAL 0.48 mg/dL (0.2-1.3); CALCIUM 7.8 mg/dL (8.5-10.1); CHLORIDE - SERUM 103 mmol/L (98-107); CREATININE - SERUM 0.8 mg/dL (0.6-1.3); POTASSIUM - SERUM 3.1 mmol/L (3.5-5.1); PROTEIN - SERUM 5.8 g/dL (6.4-8.2); SODIUM 143 mmol/L (136-145); UREA NITROGEN 8 mg/dL (7-18); eGFR NON AFRICAN AMERICAN > 90 mL/min (90-120)
[2017-02-21 06:44] LABS: CALC OSMOLALITY 282 mosm/kg (275-300); GLUCOSE 106 mg/dL (74-106)
[2017-02-21 07:59] VITALS: BP 167/76
--- NOTE | 2017-02-21 08:58 | NUR ---
PT ASSESSMENT COMPLETE AWAKE AND ALERT ORINETED X 3 LUNGS CLAER BIALTERALLY WITH DIMINISHED SOUDS NOTED TO BASES BILATERALLY HAS VERY FIRM DISTENDED ABDOMEN BSA X 4 QUADS NON TENDER TO PALPATION. PT COMPLAINS OF SHORTNESS OF BREATH WHILE SITTING IN AN UPRIGHT POSITION. REPORTED TO NURSE PRACTITIONER.
--- NOTE | 2017-02-21 09:30 | NUR ---
PATIENT IN LOW PALOMARES POSITION RESTING QUIETLY. RESPIRATIONS EVEN AND UNLABORED. SIDE RAILS UP X2. BED IN LOW POSITION. CALL LIGHT IN REACH.
--- NOTE | 2017-02-21 11:29 | NUR ---
PT SITTING UP IN CHAIR AT BEDSIDE AT SIDE NO ACUTE DISTRESS NTOED
[2017-02-21 11:46] VITALS: BP 149/75
--- NOTE | 2017-02-21 13:16 | NUR ---
Nutrition Follow Up: Chart reviewed. Pt with abdominal pain and is now NPO. Noted NGT removed. No new wt to assess. I>O. Labs reviewed - Glucose elevated. Meds noted including Flagyl, Lasix, Humalog, NS @ 50 ml/hr. +BM 02/19/17. Rec advancing diet when medically feasible. RD will continue to monitor pt progress.
[2017-02-21 15:37] VITALS: BP 142/65
--- NOTE | 2017-02-21 16:01 | NUR ---
Patient Name: ROCIO SHAH Admission Status: ER Accout number: [id number] Admission Date: 02-18-2017 : 1930 Admission Diagnosis:ILEUS, UNSPECIFIED Attending: LIANG Current LOS: 3 Anticipated DC Date: Planned Disposition: Home Health Service Primary Insurance: MEDICARE A & B Discharge Planning Comments: CM met with patient, spouse and daughter to discuss discharge planning / needs. Patient and family state discharge plan is to return home with resumed [facility]. Wants Kasie Santos PT for physical therapy through [facility] and wants to resume [facility]. States home environment is safe. States they use [facility] for DME/Oxygen and [facility] for CPAP. Uses [facility] in [place]. Daughter suggested that patient and spouse may benefit from home health nursing for medication set up and to monitor spouse setting up med box for accuracy. Spouse, Allyson Shah or Son, Joss Shah will transport patient home upon discharge. Denies any other discharge planning needs at this time. CM will continue to follow and assist as needed with discharge planning / needs. Is the patient Alert and Oriented? Yes * How many steps to enter\exit or inside your home? Ramp * PCP Dr. Greenberg * Pharmacy [facility] in [place] * Preadmission Environment Home with Family * ADLs Partial Dependent * Partial ADLs (Assistance needed) Bathing Dressing Medication Management Transfers * Equipment Bedside Commode Catheter Supplies CPAP Hospital Bed Hugh Lift Nebulizer Oxygen Rolling Walker Tub Bench Wheelchair * Other Equipment Has electric WC and manual WC Uses [facility] for all DME except CPAP CPAP obtained from [facility] * List name and contact numbers for known caregivers / representatives who currently or will assist patient after discharge: Spouse, Allyson Shah, (H) [phone] (C) [phone] SonJoss, DaughterMunira [phone] * Community resources currently utilized Home Health Other * Please name any agencies selected above. [facility] [phone] [facility] * Additional services required to return to the preadmission environment? No * Can the patient safely return to the preadmission environment? Yes * Has this patient been hospitalized within the prior 30 days at any hospital? Yes Rehab Care Assistant: Lucina Mitchell
--- NOTE | 2017-02-21 16:04 | NUR ---
CM called [facility]. Spoke with Ruth Ann Harris at [facility]. States patient is still active with agency. Notified Ruth Ann that patient wants to resume services upon hospital discharge and requested Kasie Johnson for physical therapy. Notified Ruth Ann that patient's daughter suggested skilled nurse check home med box for accuracy due to spouse missing some medications because the pages of discharge med list were stuck together. Ruth Ann verbalized understanding. Will contact agency when CM anticipates discharge.
[2017-02-21 19:00] VITALS: BP 154/73
--- NOTE | 2017-02-22 02:10 | NUR ---
2020)ASSISTED ON AND OFF BED FLORY TUBBS. WILL CONTINUE TO MONITOR FOR ANY CHGES. AND FOLLOW CURRENT PLAN OF CARE.
--- NOTE | 2017-02-22 03:05 | NUR ---
RESTING WITH EYES CLOSED, RESP WITH EASE, ACOSTA DRAINING TO GRAVITY, NO DISTRESS NOTED, FALL PRECAUTIONS IN PLACE, CL IN REACH
[2017-02-22 04:00] VITALS: BP 134/65
[2017-02-22 05:48] LABS: BASOPHILS 0.3 % (0-2); EOSINOPHILS 1.9 % (0-7); HEMATOCRIT 33.1 % (42.0-54.0); HEMOGLOBIN 10.5 g/dL (13.5-17.5); LYMPHOCYTES 27.6 % (15-50); MCHC 31.7 g/dL (31.0-37.0); MCV 91.4 fL (80.0-100.0); MEAN PLATELET VOLUME 9.3 fL (7.4-10.4); NEUTROPHILS 54.2 % (40-80); PLATELET COUNT 150 10x3/uL (130-400); RBC 3.62 10x6/uL (4.20-6.10); RDW 14.3 % (11.5-14.5); WBC 3.7 10x3/uL (4.8-10.8)
[2017-02-22 06:00] LABS: INR 2.73 (0.85-1.17); PROTIME 29.1 SECONDS (11.6-15.0)
[2017-02-22 06:14] LABS: ALBUMIN 2.8 g/dL (3.4-5.0); ALKALINE PHOSPHATASE 49 U/L (46-116); ALT (SGPT) 16 U/L (10-68); BILIRUBIN - TOTAL 0.38 mg/dL (0.2-1.3); CALC OSMOLALITY 285 mosm/kg (275-300); CALCIUM 7.8 mg/dL (8.5-10.1); CARBON DIOXIDE 39.8 mmol/L (21.0-32.0); CHLORIDE - SERUM 104 mmol/L (98-107); CREATININE - SERUM 0.7 mg/dL (0.6-1.3); GLUCOSE 114 mg/dL (74-106); PROTEIN - SERUM 5.4 g/dL (6.4-8.2); SODIUM 144 mmol/L (136-145); UREA NITROGEN 6 mg/dL (7-18); eGFR NON AFRICAN AMERICAN > 90 mL/min (90-120)
--- NOTE | 2017-02-22 07:45 | NUR ---
PT ASSESSMENT COMPLETE AWAKE AND ALERT ORINETED X 3 LUNGS CLEAR BIALTERALLY HAS DISTENDED AND FIRM ABDOMEN HOWEVER IS NOT DISTENDED WAS YESTERDAY. DENIES MUCH PAIN YESTERDAY AND NOT MUCH SHORTNESS OF BREATH.
[2017-02-22 08:30] VITALS: BP 165/37
--- NOTE | 2017-02-22 10:25 | NUR ---
SHELLY WITH PT IN ROOM WITH PATIENT AT THIS TIME. ON BEDPAN AT THIS TIME. AT BEDSIDE. RESPIRATIONS EVEN AND NON LABORED. CALL LIGHT IN REACH, WILL CONTINUE WITH PLAN OF CARE.
[2017-02-22 12:18] VITALS: BP 177/66
--- NOTE | 2017-02-22 12:56 | NUR ---
PT WITH NO ACUTE DISTRESS UP IN CHAIR AT BEDSIDE. TOLERATING WELL.
[2017-02-22 15:58] VITALS: BP 125/56
[2017-02-22 19:00] VITALS: BP 92/45
[2017-02-23 04:00] VITALS: BP 117/62
[2017-02-23 06:24] LABS: BASOPHILS 0.3 % (0-2); EOSINOPHILS 1.7 % (0-7); HEMATOCRIT 33.1 % (42.0-54.0); HEMOGLOBIN 10.4 g/dL (13.5-17.5); LYMPHOCYTES 24.4 % (15-50); MCH 28.7 pg (26.0-34.0); MCHC 31.4 g/dL (31.0-37.0); MCV 91.4 fL (80.0-100.0); MEAN PLATELET VOLUME 8.9 fL (7.4-10.4); MONOCYTES 14.4 % (2-11); NEUTROPHILS 59.2 % (40-80); PLATELET COUNT 158 10x3/uL (130-400); RBC 3.62 10x6/uL (4.20-6.10); RDW 14.1 % (11.5-14.5); WBC 3.6 10x3/uL (4.8-10.8)
[2017-02-23 06:56] LABS: INR 4.32 (0.85-1.17)
[2017-02-23 07:02] LABS: ALBUMIN 2.6 g/dL (3.4-5.0); ALKALINE PHOSPHATASE 44 U/L (46-116); ALT (SGPT) 15 U/L (10-68); CALCIUM 8.3 mg/dL (8.5-10.1); CARBON DIOXIDE 39.7 mmol/L (21.0-32.0); CHLORIDE - SERUM 102 mmol/L (98-107); CREATININE - SERUM 0.8 mg/dL (0.6-1.3); GLUCOSE 112 mg/dL (74-106); PROTEIN - SERUM 5.4 g/dL (6.4-8.2); SODIUM 144 mmol/L (136-145); eGFR NON AFRICAN AMERICAN > 90 mL/min (90-120)
[2017-02-23 07:17] LABS: CALC OSMOLALITY 284 mosm/kg (275-300); UREA NITROGEN 4 mg/dL (7-18)
[2017-02-23 08:14] VITALS: BP 128/62
--- NOTE | 2017-02-23 09:55 | NUR ---
Received patient lying in bed, alert and oriented times 4. No distress assessed. reports he consumed his full liquid diet without any nausea or vomitting, had small loose bm earlier in am, is having flatulence. Reports no pain. Side rail up times 2, call light within reach. Bed alarm on. Spouse at bedside.
[2017-02-23 11:50] VITALS: BP 130/58
--- NOTE | 2017-02-23 14:06 | NUR ---
Sitting up in chair, no distress. Call light within reach. Spouse at bedside.
[2017-02-23 15:43] VITALS: BP 121/64
[2017-02-23 20:00] VITALS: BP 117/60
--- NOTE | 2017-02-23 20:00 | NUR ---
PATIENT ON NEB TREATMENT WITH AT BEDSIDE AND DENIES NEEDS AT THIS TIME. BED IN LOWEST POSITION AND CALL LIGHT WITHIN REACH. ENCOURAGED THE PATIENT TO CALL IF HE HAS NEEDS.
[2017-02-24] VITALS: BP 129/46
[2017-02-24 04:00] VITALS: BP 97/67
[2017-02-24 05:05] LABS: BASOPHILS 0.3 % (0-2); EOSINOPHILS 1.4 % (0-7); HEMATOCRIT 31.6 % (42.0-54.0); HEMOGLOBIN 9.9 g/dL (13.5-17.5); LYMPHOCYTES 20.9 % (15-50); MCH 28.7 pg (26.0-34.0); MCHC 31.3 g/dL (31.0-37.0); MCV 91.6 fL (80.0-100.0); MEAN PLATELET VOLUME 9.2 fL (7.4-10.4); MONOCYTES 16.3 % (2-11); NEUTROPHILS 61.1 % (40-80); PLATELET COUNT 159 10x3/uL (130-400); RBC 3.45 10x6/uL (4.20-6.10); RDW 14.3 % (11.5-14.5); WBC 3.7 10x3/uL (4.8-10.8)
[2017-02-24 05:18] LABS: INR 4.76 (0.85-1.17); PROTIME 45.4 SECONDS (11.6-15.0)
[2017-02-24 05:50] LABS: ALBUMIN 2.6 g/dL (3.4-5.0); ALKALINE PHOSPHATASE 47 U/L (46-116); BILIRUBIN - TOTAL 0.23 mg/dL (0.2-1.3); CHLORIDE - SERUM 102 mmol/L (98-107); CREATININE - SERUM 0.8 mg/dL (0.6-1.3); GLUCOSE 148 mg/dL (74-106); SODIUM 143 mmol/L (136-145); eGFR NON AFRICAN AMERICAN > 90 mL/min (90-120)
[2017-02-24 05:51] LABS: ALT (SGPT) 22 U/L (10-68); CALC OSMOLALITY 285 mosm/kg (275-300); POTASSIUM - SERUM 3.2 mmol/L (3.5-5.1); UREA NITROGEN 7 mg/dL (7-18)
[2017-02-24 05:52] LABS: CARBON DIOXIDE 40.1 mmol/L (21.0-32.0)
--- NOTE | 2017-02-24 07:30 | NUR ---
PT ASSESSMENT COMPLETE AWAKE AND ALERT ORINETD X 3 LUNGS WITH BILATERAL DIMINISHMENT IN BASES BSA X 4 QUADS ABDOMEN FIRM BUT SOFTER THAN PREVIOUS ASSESSMENT A FEW DAYS AGO. RAKA NOTED ACOSTA PATENT TO CLEAR YELLOW URINE AT SIDE
[2017-02-24 08:36] VITALS: BP 115/59
--- NOTE | 2017-02-24 11:55 | NUR ---
AWAKE AND ALERT. ORIENTED X3. NO C/O AT THIS TIME. SITTING UP IN CHAIR AT BEDSIDE IN ROOM. BOWEL SOUNDS ARE PRESENT X4 BUT SLIGHTLY HYPOACTIVE. DENIES NEEDS.
[2017-02-24 12:17] VITALS: BP 99/53
[2017-02-24] MEDS ORDERED: COUMADIN4 MG PO (12:27)
[2017-02-24] MEDS ORDERED: OMNICEF300 MG PO (12:29)
[2017-02-24] MEDS ORDERED: ZITHROMAX250 MG PO (12:29)
[2017-02-24] MEDS ORDERED: FLAGYL500 MG PO (12:32)
--- NOTE | 2017-02-24 13:34 | NUR ---
Nutrition Follow Up: Chart reviewed. Pt with no N/V and is tolerating current diet. I>O. +BM 02/24/17. No new wt to assess. Labs reviewed - K+ low, Glucose elevated. Meds noted including Flagyl, Lasix, Humalog, NS @ 50 ml/hr. Pt with good po intake at this time. Rec changing diet to diabetic to aid in glucose control. RD will continue to monitor pt progress.
--- NOTE | 2017-02-24 14:30 | NUR ---
PT DISCHARGED AT THIS TIME ACOSTA REMOVED DEFLATED BALLOON PRIOR TO REMOVAL PER PROTOCOL. PT AND EXPRESSED UNDERSTANDING OF DISCHARGE INSTRUCTIONS. PIV DISCONTINUED.
--- NOTE | 2017-02-24 17:08 | NUR ---
CM NOTE: REFERRAL SENT TO [facility] FOR MED BOX AND PT CATHIE FELIPE RN
== END 2017-02-24 15:58 | disposition home or self-care (01) | DRG 390 ==
LOC: D.ER 14:16 → OBSVTIME 17:37 → D.MS 17:37
PROVIDERS: Emergency Medicine; Family Medicine; ADMIT Emergency Medicine
PROC: 0D9670Z Drainage of Stomach with Drainage Device, Via Natural or Artificial Opening (ICD-10-PCS; principal; 2017-02-19)
DX: K56.7 Ileus, unspecified (principal); E11.65 Type 2 diabetes mellitus with hyperglycemia; E11.40 Type 2 diabetes mellitus with diabetic neuropathy, unspecified; Z79.84 Long term (current) use of oral hypoglycemic drugs; I48.91 Unspecified atrial fibrillation; Z79.01 Long term (current) use of anticoagulants; K42.9 Umbilical hernia without obstruction or gangrene; Z95.0 Presence of cardiac pacemaker; I50.9 Heart failure, unspecified; I25.10 Atherosclerotic heart disease of native coronary artery without angina pectoris; J44.9 Chronic obstructive pulmonary disease, unspecified; Z99.81 Dependence on supplemental oxygen; N31.9 Neuromuscular dysfunction of bladder, unspecified; D03.30 Melanoma in situ of unspecified part of face; G72.9 Myopathy, unspecified; E87.6 Hypokalemia

== ENCOUNTER 2017-03-01 04:21 | Inpatient (IN) | payer MEDICARE, BC ==
[~2017-03-01] VITALS: Ht 185.4 cm; Wt 90.7 kg
[~2017-03-01 04:21] MED LIST changes: +FLAGYL500 MG PO; +OMNICEF300 MG PO; +ZITHROMAX250 MG PO
[2017-03-01 04:43] LABS: BASOPHILS 0.3 % (0-2); EOSINOPHILS 0.3 % (0-7); IMMATURE GRANULOCYTES 0.1 % (0-5); LYMPHOCYTES 14.4 % (15-50); MCH 28.7 pg (26.0-34.0); MCHC 31.6 g/dL (31.0-37.0); MCV 90.9 fL (80.0-100.0); MONOCYTES 14.6 % (2-11); NEUTROPHILS 70.3 % (40-80); RBC 4.18 10x6/uL (4.20-6.10); RDW 14.9 % (11.5-14.5); WBC 7.2 10x3/uL (4.8-10.8)
[2017-03-01 04:46] LABS: PLATELET COUNT 308 10x3/uL (130-400)
[2017-03-01 05:17] LABS: ALBUMIN 3.3 g/dL (3.4-5.0); ALKALINE PHOSPHATASE 52 U/L (46-116); ALT (SGPT) 32 U/L (10-68); BILIRUBIN - TOTAL 0.64 mg/dL (0.2-1.3); CALCIUM 8.9 mg/dL (8.5-10.1); CHLORIDE - SERUM 99 mmol/L (98-107); CKMB 1.2 U/L (0.0-3.6); CREATINE KINASE 35 UL (21-232); CREATININE - SERUM 0.9 mg/dL (0.6-1.3); PROTEIN - SERUM 7.1 g/dL (6.4-8.2); SODIUM 145 mmol/L (136-145); UREA NITROGEN 15 mg/dL (7-18); eGFR NON AFRICAN AMERICAN 85 mL/min (90-120)
[2017-03-01 05:26] LABS: CALC OSMOLALITY 285 mosm/kg (275-300); GLUCOSE 28 mg/dL (74-106)
[2017-03-01 05:27] LABS: CARBON DIOXIDE 48.1 mmol/L (21.0-32.0); POTASSIUM - SERUM 2.2 mmol/L (3.5-5.1); TROPONIN-I 0.092 ng/mL (0.000-0.060)
--- NOTE | 2017-03-01 08:00 | NUR ---
PT RECEIVED TO ROOM 2106, VIA STRETCHER, ACCOPANIED BY ER NURSE AND FAMILY. PT AND FAMILY ORIENTED TO ROOM AND CALL LIGHT. PT PROVIDED WITH 14F SELF CATHETERS AND URINAL. WILL ASSESS PT AND START PLAN OF CARE.
--- NOTE | 2017-03-01 08:30 | NUR ---
BLOOD SUGAR OF 126, NO COVERAGE NEEDED PER SLIDING SCALE. FAMILY AT BEDSIDE, NAD NOTED, WILL CONTINUE TO MONITOR.
[2017-03-01 09:00] VITALS: BP 153/81; BP 81/32
[2017-03-01 12:30] VITALS: BP 136/52
--- NOTE | 2017-03-01 12:46 | NUR ---
BLOOD SUGAR OF 204, NO INSULIN GIVEN AT THIS TIME. PT DID NOT EAT LUNCH, AND AT BEDSIDE DOES NOT WANT HIS BLOOD SUGAR TO BOTTOM OUT. WILL RECHECK BLOOD SUGAR AT 1630 AND COVER THEN NEEDED. PT WAS FEELING SOB EARLIER BUT FEELS MUCH BETTER NOW, NAD NOTED, AT BESIDE, WILL CONTINUE TO MONITOR.
[2017-03-01 13:55] VITALS: BP 153/81; BMI 24.4
[2017-03-01 16:05] VITALS: BP 114/54
--- NOTE | 2017-03-01 16:41 | NUR ---
BLOOD SUGAR OF 128, NO COVERAGE NEEDED PER S/S, NAD NOTED. PT DENIES ANY NEEDS AT THIS TIME. CALL LIGHT IN REACH, NAD NOTED, WILL CONTINUE TO MONITOR.
[2017-03-01 21:07] VITALS: BP 108/49
[2017-03-02 01:38] VITALS: BP 109/54
[2017-03-02 04:36] LABS: BASOPHILS 0.2 % (0-2); EOSINOPHILS 0.8 % (0-7); HEMATOCRIT 34.7 % (42.0-54.0); HEMOGLOBIN 10.5 g/dL (13.5-17.5); IMMATURE GRANULOCYTES 0.2 % (0-5); LYMPHOCYTES 15.6 % (15-50); MCH 28.3 pg (26.0-34.0); MCHC 30.3 g/dL (31.0-37.0); MONOCYTES 19.6 % (2-11); NEUTROPHILS 63.6 % (40-80); PLATELET COUNT 274 10x3/uL (130-400); RBC 3.71 10x6/uL (4.20-6.10); RDW 15.1 % (11.5-14.5); WBC 6.3 10x3/uL (4.8-10.8)
[2017-03-02 04:48] LABS: MCV 93.5 fL (80.0-100.0)
[2017-03-02 05:12] LABS: CALCIUM 8.6 mg/dL (8.5-10.1); CHLORIDE - SERUM 96 mmol/L (98-107); CREATININE - SERUM 0.9 mg/dL (0.6-1.3); SODIUM 143 mmol/L (136-145); TROPONIN-I 0.051 ng/mL (0.000-0.060); UREA NITROGEN 12 mg/dL (7-18); eGFR NON AFRICAN AMERICAN 85 mL/min (90-120)
[2017-03-02 05:14] LABS: CALC OSMOLALITY 283 mosm/kg (275-300); GLUCOSE 75 mg/dL (74-106); POTASSIUM - SERUM 3.5 mmol/L (3.5-5.1)
[2017-03-02 05:15] LABS: CARBON DIOXIDE 50.1 mmol/L (21.0-32.0)
[2017-03-02 05:32] VITALS: BP 101/52
--- NOTE | 2017-03-02 05:58 | NUR ---
NURSE ROUNDS 03/01/17 21:00 - PT AWAKE, ALERT, ORIENTED, AT BEDSIDE. PT IS IN NO ACUTE DISTRESS AT THIS TIME. PT DENIES ANY NEEDS. CONTINUE TO MONITOR CLOSELY. BED LOW, CALL LIGHT IN REACH, SIDE RAILS X 2, HOB 30 DEGREES.
[2017-03-02 07:47] VITALS: BP 111/51
--- NOTE | 2017-03-02 09:30 | NUR ---
SITTING UP IN BED IN NO ACUTE DISTRESS. SPOUSE AT BEDSIDE ATTENDING NEEDS. ASSESSMENT COMPLETED. MEDICATIONS GIVEN. SIDE RAILS UP X2. CALL LIGHT WITHIN REACH. DENIES FURTHER NEEDS
--- NOTE | 2017-03-02 10:30 | NUR ---
PROVIDED PT WITH 14F COLOPLAST SELF CATHETERS AND [place]-GEL FOR SELF CATHING NEEDS PER REQUEST. DENIES FURTHER NEEDS
[2017-03-02 11:40] VITALS: BP 94/37
--- NOTE | 2017-03-02 12:07 | NUR ---
SITTING UP IN BED EATING LUNCH. MEDICATION GIVEN. TOLERATED WELL. DENIES FURTHER NEEDS AT THIS TIME
[2017-03-02 14:00] VITALS: Ht 185.4 cm; Wt 90.7 kg
--- NOTE | 2017-03-02 15:51 | NUR ---
Rehab Prescreening Consult recieved and the chart was reviewed. This patient is well known from a rehab stay earlier this month. Currently he is very low level and it is doubtful he can tolerate 3 hours of therapy every day 5 days a week. Rehab will follow him and discuss with his daughter his options rehab vs SNF. Yaneth Forrest RN Clinical Liaison, Rehab
[2017-03-02 15:54] VITALS: BP 116/57
--- NOTE | 2017-03-02 16:59 | NUR ---
* Is the patient Alert and Oriented? Yes 0 * How many steps to enter\exit or inside your home? Ramp 0 * PCP Dr. Greenberg 0 * Pharmacy [facility] 0 * Preadmission Environment Home with Family 0 * ADLs Partial Dependent 0 * Partial ADLs (Assistance needed) Ambulation Bathing Dressing Medication Management Toileting 0 * Equipment Bedside Commode Cane Other Oxygen Rolling Walker Shower Chair Wheelchair 0 * Other Equipment Trilogy 0 * List name and contact numbers for known caregivers / representatives who currently or will assist patient after discharge: Spouse - Allyson Shah Dtr - Munira Foley [phone] or [phone] * Community resources currently utilized Home Health 0 * Please name any agencies selected above. [facility] 0 * Additional services required to return to the preadmission environment? Yes 0 * Has this patient been hospitalized within the prior 30 days at any hospital? Yes 03/02/2017 17:00 DCP: Discharge Planning Patient Name: ROCIO SHAH Admission Status: ER Accout number: [id number] Admission Date: 03-01-2017 : 1930 Admission Diagnosis: Attending: CHETAN Current LOS: 1 Planned Disposition: Primary Insurance: MEDICARE A & B Discharge Planning Comments: CM met with patient & spouse to assess dc plans/needs. Patient states he lives at home with his , Allyson. He reports he is current with [facility]. He has a walker, cane, WC, BSC, SC, O2 @ 2L, nebulizer & trilogy at home. Long discussion with patient & spouse about discharge disposition - explained the need for custodial placement for further therapy at discharge due to frequent hospital admissions. Also discussed hospice options - answered questions regarding both services. Patient is not interested in hospice at this time. He states he will consider going to a custodial facility at discharge - [facility]. He wants to discuss it with his family tonight before making a decision. Above discussed with Dr. Lopez. CM will follow. Combination Machine Tool Setter: Louise Gomez
--- NOTE | 2017-03-02 18:09 | NUR ---
LYING IN BED VISITING WITH FAMILY. DENIES NEEDS
[2017-03-02 20:44] VITALS: BP 144/57
--- NOTE | 2017-03-02 21:08 | NUR ---
HS MEDS GIVEN, BS 188, COVERED PER S/S. PT DENIES NEEDS, AT BED SIDE.
--- NOTE | 2017-03-03 02:22 | NUR ---
RESTING WITH EYES CLOSED, RESPERATIONS EVEN, NO S/S DISTRESS NOTED.
[2017-03-03 03:47] VITALS: BP 109/55
[2017-03-03 05:40] LABS: BASOPHILS 0.3 % (0-2); EOSINOPHILS 1.1 % (0-7); HEMATOCRIT 32.3 % (42.0-54.0); HEMOGLOBIN 10.1 g/dL (13.5-17.5); IMMATURE GRANULOCYTES 0.1 % (0-5); LYMPHOCYTES 15.1 % (15-50); MCH 29.3 pg (26.0-34.0); MCHC 31.3 g/dL (31.0-37.0); MCV 93.6 fL (80.0-100.0); MEAN PLATELET VOLUME 9.1 fL (7.4-10.4); MONOCYTES 19.5 % (2-11); NEUTROPHILS 63.9 % (40-80); PLATELET COUNT 303 10x3/uL (130-400); RBC 3.45 10x6/uL (4.20-6.10); RDW 15.3 % (11.5-14.5); WBC 7.1 10x3/uL (4.8-10.8)
[2017-03-03 06:11] LABS: CALCIUM 8.5 mg/dL (8.5-10.1); CHLORIDE - SERUM 97 mmol/L (98-107); POTASSIUM - SERUM 3.7 mmol/L (3.5-5.1); SODIUM 141 mmol/L (136-145); eGFR NON AFRICAN AMERICAN 75 mL/min (90-120)
[2017-03-03 06:34] LABS: CALC OSMOLALITY 283 mosm/kg (275-300); GLUCOSE 140 mg/dL (74-106); UREA NITROGEN 16 mg/dL (7-18)
[2017-03-03 06:35] LABS: CARBON DIOXIDE 47.4 mmol/L (21.0-32.0)
--- NOTE | 2017-03-03 07:19 | NUR ---
PT SITTING UP IN BED WITH AT BEDSIDE, DENIES NEEDS WILL CONT TO MONITOR
[2017-03-03 08:34] VITALS: BP 105/54
[2017-03-03 11:53] VITALS: BP 109/52
[2017-03-03 15:32] VITALS: BP 142/59
[2017-03-03] MEDS ORDERED: TRAZODONE HCL150 MG PO ×2 (16:24→16:25)
--- NOTE | 2017-03-03 16:47 | NUR ---
PT SITTING UP IN BED DENIES NEEDS WILL CONT TO MONITOR AT BEDSIDE
[2017-03-03 20:00] VITALS: BP 119/54
--- NOTE | 2017-03-03 23:40 | NUR ---
NURSE ROUNDS 21:45 - PT LYING IN BED, AWAKE, ALERT, ORIENTED, DENIES ANY NEEDS. AT BEDSIDE. PTS SON DID TRANSFER PT TO WHEELCHAIR EARLIER THIS SHIFT TO TAKE HIM AROUND FOR A CHANGE OF SCENERY BUT THEY DID NOT GO OUTSIDE. O2 TANK IN TOW. PT TOLERATED WELL. CONTINUE TO MONITOR CLOSELY. BED LOW, CALL LIGHT IN REACH, SIDE RAILS X 2, HOB 25 DEGREES.
[2017-03-04] VITALS: BP 125/66
[2017-03-04 04:00] VITALS: BP 122/59
--- NOTE | 2017-03-04 07:17 | NUR ---
PT SITTING UP IN BED DENIES NEEDS WILL CONT TO MONITOR
[2017-03-04 08:03] VITALS: BP 133/59
--- NOTE | 2017-03-04 11:20 | NUR ---
Rehab Note- Have been following the patient, he continues to be unable to tolerate the required 3hrs of therapy per day on acute rehab. Spoke with ANA Bull. Thank you for this referral! Park Romero RN Clinical Liaison, [facility] Rehab/[facility]
[2017-03-04 11:48] VITALS: BP 112/53
[2017-03-04 14:07] LABS: INR 1.09 (0.85-1.17)
[2017-03-04] MEDS ORDERED: COUMADIN4 MG PO (14:39)
[2017-03-04] MEDS ORDERED: GLIMEPIRIDE2 MG PO ×2 (14:57→14:58)
[2017-03-04 15:38] VITALS: BP 114/57
--- NOTE | 2017-03-04 16:17 | NUR ---
Patient Name: ROCIO SHAH Encounter No: [id number] : 1930 Primary Insurance: MEDICARE A & B Anticipated DC Date: Planned Disposition: Home with Home Health External Planned Provider: [facility] DCP follow-up note: CM MET WITH PT IN ROOM TO DISCUSS DISCHARGE NEEDS AND PLANNING. CM DISCUSSED AVAILABILITY OF HOME HEALTH, REHAB SERVICES AND MEDICAL EQUIPMENT. PT AND SPOUSE REFUSE PRISON OR REHAB PLACEMENT. PT'S SPOUSE REPORTS SHE IS ABLE TO CARE FOR PT AT HOME AND WANTS TO GO HOME WITH RESUMPTION OF HOME HEALTH AND HOUSECALLS. PT'S SPOUSE TO TRANSPORT HOME AT DISCHARGE TODAY. IMPORTANT MESSAGE FROM MEDICARE PROVIDED AND EXPLAINED. CM CALLED [facility], , SPOKE TO CINDY AND PT WAS PLACED ON RESUMPTION SCHEDULE. CM FAXED DISCHARGE INFORMATION TO [place] AT [phone]. Shaun Lewis, CASE MANAGEMENT
--- NOTE | 2017-03-04 16:31 | NUR ---
WENT OVER DC PAPERWORK WITH PT PT VERBALIZES UNDERSTANDING. DC BOTH PIVS WITH CATH TIPS INTACT. WHEELED PT OUT TO FRONT ENTRANCE. PT HAS HOME OXYGEN. DROVE OFF WITH PT
== END 2017-03-04 16:32 | disposition home health service (06) | DRG 637 ==
LOC: D.ER 04:21 → D.M2 06:50
PROVIDERS: Family Medicine; ADMIT Family Medicine
DX: E11.649 Type 2 diabetes mellitus with hypoglycemia without coma (principal); J96.20 Acute and chronic respiratory failure, unspecified whether with hypoxia or hypercapnia; Z89.611 Acquired absence of right leg above knee; E87.6 Hypokalemia; J44.9 Chronic obstructive pulmonary disease, unspecified; I48.91 Unspecified atrial fibrillation; I25.10 Atherosclerotic heart disease of native coronary artery without angina pectoris; I50.9 Heart failure, unspecified; E11.40 Type 2 diabetes mellitus with diabetic neuropathy, unspecified; K21.9 Gastro-esophageal reflux disease without esophagitis; Z95.5 Presence of coronary angioplasty implant and graft; Z95.0 Presence of cardiac pacemaker; Z87.891 Personal history of nicotine dependence

== ENCOUNTER 2017-03-14 11:05 | Inpatient (IN) | payer MEDICARE, BC ==
[~2017-03-14] VITALS: Ht 185.4 cm; Wt 82.3 kg
[~2017-03-14 11:05] MED LIST changes: +TRAZODONE HCL150 MG PO
[2017-03-14 12:05] LABS: BASOPHILS 0.1 % (0-2); EOSINOPHILS 0 % (0-7); HEMATOCRIT 35.4 % (42.0-54.0); HEMOGLOBIN 10.6 g/dL (13.5-17.5); IMMATURE GRANULOCYTES 0.4 % (0-5); LYMPHOCYTES 9.7 % (15-50); MCH 28.3 pg (26.0-34.0); MCHC 29.9 g/dL (31.0-37.0); MCV 94.4 fL (80.0-100.0); MEAN PLATELET VOLUME 9.3 fL (7.4-10.4); MONOCYTES 10.4 % (2-11); NEUTROPHILS 79.4 % (40-80); RBC 3.75 10x6/uL (4.20-6.10); RDW 14.9 % (11.5-14.5); WBC 6.7 10x3/uL (4.8-10.8)
[2017-03-14 12:08] LABS: PLATELET COUNT 239 10x3/uL (130-400)
[2017-03-14 12:34] LABS: ALBUMIN 3.2 g/dL (3.4-5.0); ALKALINE PHOSPHATASE 82 U/L (46-116); ALT (SGPT) 55 U/L (10-68); BILIRUBIN - TOTAL 0.78 mg/dL (0.2-1.3); CALCIUM 8.8 mg/dL (8.5-10.1); CARBON DIOXIDE 39.8 mmol/L (21.0-32.0); CHLORIDE - SERUM 100 mmol/L (98-107); CREATINE KINASE 20 UL (21-232); MAGNESIUM - SERUM 2.1 mg/dL (1.8-2.4); POTASSIUM - SERUM 4.5 mmol/L (3.5-5.1); PRO BNP 4693 pg/mL (0-450); PROTEIN - SERUM 6.8 g/dL (6.4-8.2); SODIUM 140 mmol/L (136-145); UREA NITROGEN 18 mg/dL (7-18); eGFR NON AFRICAN AMERICAN 75 mL/min (90-120)
[2017-03-14 12:35] LABS: CALC OSMOLALITY 285 mosm/kg (275-300); GLUCOSE 189 mg/dL (74-106); TROPONIN-I < 0.017 ng/mL (0.000-0.060)
[2017-03-14 13:45] VITALS: BP 121/67
--- NOTE | 2017-03-14 13:48 | NUR ---
PT ARRIVED TO ROOM ALERT AND ORIENTED WITH AT BEDSIDE. SHIFT ASSESSMENT COMPLETED. PT IS CURRENLTY ON BIPAP WITH RR NONLABORED. VSS. PT IS A R.AKA WITH SITE COMPLETELY CLOSED AND HEALED. PT HAS A PROSTHESIS BUT ISNT CURRENTLY USING IT R/T NEEDING IT RESIZED. PT HAS A ACOSTA CATHETER IN FOR URINE RETENTION AND ITS DRAINING CLEAR YELLOW URINE TO GRAVITY WITH STAT LOCK SECURED TO L.INNER THIGH. PT HAS A R.HAND PIV WITH DRSG CDI AND SWAB CAPS IN USE. ORIENTED PT AND TO ROOM, FLOOR AND CL. CL IN REACH, BED IN LOWEST, SIDE RAILS X2, WILL CONTINUE WITH PLAN OF CARE AND ADMISSION ORDERS.
[2017-03-14 14:56] VITALS: BP 121/67; BMI 23.8
[2017-03-14] MEDS ORDERED: GLIMEPIRIDE2 MG PO (15:41)
[2017-03-14] MEDS ORDERED: ATIVAN0.5 MG PO (15:55)
[2017-03-14 16:00] VITALS: BP 138/57
[2017-03-14 16:33] LABS: INR 1.34 (0.85-1.17); PROTIME 16.4 SECONDS (11.6-15.0)
--- NOTE | 2017-03-14 17:10 | NUR ---
FSBS 104 NO COVERAGE REQUIRED PER SS. PT RESTING QUIETLY IN BED WITH AT BEDSIDE, REMOVED BIPAP SO PT COULD EAT DINNER PT WEARING NC @4L AND BREATHING REGULAR. PT DENIES ANY FURTHER NEEDS AT THIS TIME. CL IN REACH. WILL CTM.
[2017-03-14 20:13] VITALS: BP 113/47
--- NOTE | 2017-03-14 23:25 | NUR ---
NURSE ROUNDS 20:00 - PT LYING IN BED, AWAKE, ALERT, ORIENTED, AT BEDSIDE, BIPAP IN PLACE AND ON. PT DENIES ANY NEEDS, TAKES HIS MEDICATIONS WITHOUT ANY DIFFICULTY. CONTINUE TO MONITOR CLOSELY. BED LOW, CALL LIGHT IN REACH, SIDE RAILS X 2, HOB 20 DEGREES.
[2017-03-14 23:40] VITALS: BP 111/48
--- NOTE | 2017-03-15 00:46 | NUR ---
MERREM AND SOLU-MEDROL GIVEN PER DR. WELDON'S ORDERS AT 23:45 03/14/17.
[2017-03-15 03:43] VITALS: BP 114/54
--- NOTE | 2017-03-15 04:44 | NUR ---
PT HAS BEEN RESTLESS THIS SHIFT, WANTING OFF THE BIPAP MASK SEVERAL TIMES. PTS ATTEMPTS TO HELP PATIENT BY TAKING HIS MASK OF HIM, BUT DOES NOT REALIZE THE IMPORTANCE OF THE BIPAP REMAINING ON THE PATIENT. THEY ARE ASKING FOR SOMETHING TO HELP IS NERVES SO THAT HIS BREATHING WILL BECOME MORE RELAXED AND SO PT CAN RELAX WELL. PT IS IN NO ACUTE DISTRESS, BUT HAS TAKEN THE MASK OFF SEVERAL TIMES THIS SHIFT. CURRENTLY HE IS WEARING HIS NC O2 AT 4LPM. WILL CONTINUE TO MONITOR CLOSELY.
--- NOTE | 2017-03-15 05:09 | NUR ---
I WENT TO ADMINISTER PRN LORAZEPAM TO PT PER WIFES INSISTENCE, HOWEVER, BOTH WERE SLEEPING, PT RESTING COMFORTABLY AND IN NO ACUTE DISTRESS AT THIS TIME. WILL HOLD THE LORAZEPAM AND CONTINUE TO MONITOR CLOSELY.
[2017-03-15 05:43] LABS: BASOPHILS 0.1 % (0-2); EOSINOPHILS 0 % (0-7); HEMATOCRIT 32.5 % (42.0-54.0); IMMATURE GRANULOCYTES 0.1 % (0-5); LYMPHOCYTES 7.6 % (15-50); MCH 28.3 pg (26.0-34.0); MCHC 30.8 g/dL (31.0-37.0); MEAN PLATELET VOLUME 9.7 fL (7.4-10.4); MONOCYTES 2.3 % (2-11); NEUTROPHILS 89.9 % (40-80); PLATELET COUNT 253 10x3/uL (130-400); RBC 3.53 10x6/uL (4.20-6.10); RDW 14.8 % (11.5-14.5); WBC 7.8 10x3/uL (4.8-10.8)
[2017-03-15 05:56] LABS: INR 1.48 (0.85-1.17); PROTIME 17.8 SECONDS (11.6-15.0)
[2017-03-15 06:01] LABS: MCV 92.1 fL (80.0-100.0)
[2017-03-15 06:30] LABS: CALC OSMOLALITY 281 mosm/kg (275-300); CALCIUM 8.5 mg/dL (8.5-10.1); CARBON DIOXIDE 37.8 mmol/L (21.0-32.0); CHLORIDE - SERUM 97 mmol/L (98-107); CREATININE - SERUM 0.9 mg/dL (0.6-1.3); GLUCOSE 179 mg/dL (74-106); MAGNESIUM - SERUM 1.7 mg/dL (1.8-2.4); PHOSPHOROUS 3.2 mg/dL (2.5-4.9); POTASSIUM - SERUM 4.3 mmol/L (3.5-5.1); SODIUM 138 mmol/L (136-145); UREA NITROGEN 18 mg/dL (7-18); eGFR NON AFRICAN AMERICAN 85 mL/min (90-120)
--- NOTE | 2017-03-15 07:32 | NUR ---
PT IS RESTING IN BED WITH EYES OPEN. RESP TECH DOING INHALATION TX'S AT THIS TIME. PT IS ALERT TO SELF. STATES HE IS FEELING FINE. SPOUSE IS RESTING IN A RECLINER AT THE BEDSIDE. PT IS VERY [place]. ACOSTA CATH IS PATENT AND DRAINING TO A GRAVITY BAG. TELEMETRY UNIT IS ON. SR'S ARE UP X 3 IN BED. CALL LIGHT AND BEDSIDE TABLE ARE WITHIN EASY REACH.
[2017-03-15 09:25] VITALS: BP 108/56; Ht 185.4 cm; Wt 82.3 kg
--- NOTE | 2017-03-15 09:30 | NUR ---
RESP UL ON . AT BS. CALL LIGHT IN REACH. WILL CONT. PLAN OF CARE.
[2017-03-15 11:38] LABS: APPEARANCE CLEAR (CLEAR); BILIRUBIN NEGATIVE (NEGATIVE); COLOR YELLOW (YELLOW); GLUCOSE NEGATIVE (NEGATIVE); KETONE MODERATE mg/dL (NEGATIVE); LEUKOCYTE ESTERASE 2+ (NEGATIVE); NITRITE NEGATIVE (NEGATIVE); PROTEIN TRACE mg/dL (NEGATIVE); SPECIFIC GRAVITY 1.015 (1.005-1.020); UROBILINOGEN NORMAL (NORMAL)
[2017-03-15 11:39] LABS: BACTERIA MODERATE /hpf (NONE SEEN); EPITHELIAL CELLS 0-5 /hpf (0-5); HYALINE CAST 0-5 /lpf (NONE SEEN); MUCUS <1+ /lpf (NONE SEEN); WAXY CAST RARE /lpf (NONE SEEN)
--- NOTE | 2017-03-15 12:09 | NUR ---
PT IS RESTING IN BED FEEDING SELF LUNCH. NO SWALLOW PROBLEMS NOTED. SPOUSE IS ASSISTING NEEDED.
[2017-03-15 12:20] VITALS: BP 105/51
--- NOTE | 2017-03-15 14:14 | NUR ---
PT IS RESTING IN BED WITH EYES CLOSED. NO ACUTE DISTRESS NOTED. CPAP IS ON.
[2017-03-15 15:32] VITALS: BP 112/53
--- NOTE | 2017-03-15 15:58 | NUR ---
PT RESTING IN BED VISITING WITH HIS . NO NEEDS VOICED. NO ACUTE DISTRESS NOTED.
--- NOTE | 2017-03-15 19:30 | NUR ---
RECEIVED PT IN BED AAOX4 RESP SHALLOW 02 ON PER NC CHANGED OVER TO BIPAP AND INSTRUCTED PT AND HE NEEDS TO WERE BIPAP AND NOT TAKE OFF AND LEAVE OFF BOTH ASTATE UNDERSTDING WILL CONTINUE TO MONITOR
[2017-03-15 20:20] VITALS: BP 108/49
[2017-03-15 23:52] VITALS: BP 110/59
[2017-03-16 03:53] VITALS: BP 124/64
[2017-03-16 05:20] LABS: BASOPHILS 0 % (0-2); EOSINOPHILS 0 % (0-7); HEMATOCRIT 31.5 % (42.0-54.0); HEMOGLOBIN 10.1 g/dL (13.5-17.5); IMMATURE GRANULOCYTES 0.2 % (0-5); LYMPHOCYTES 9.2 % (15-50); MCH 28.9 pg (26.0-34.0); MCHC 32.1 g/dL (31.0-37.0); MEAN PLATELET VOLUME 9.3 fL (7.4-10.4); MONOCYTES 4.8 % (2-11); NEUTROPHILS 85.8 % (40-80); PLATELET COUNT 262 10x3/uL (130-400); RDW 14.5 % (11.5-14.5); WBC 6.6 10x3/uL (4.8-10.8)
[2017-03-16 05:23] LABS: INR 1.51 (0.85-1.17); PROTIME 18.1 SECONDS (11.6-15.0)
[2017-03-16 05:50] LABS: ANION GAP 4.3 mmol/L (8-16); CALCIUM 8.5 mg/dL (8.5-10.1); CREATININE - SERUM 1.1 mg/dL (0.6-1.3); POTASSIUM - SERUM 4.3 mmol/L (3.5-5.1)
--- NOTE | 2017-03-16 07:49 | NUR ---
0708-AM ROUNDING DONE WITH PATIENT ON O2 AT 3L PER NC. BIPAP AT BEDSIDE. ON HEART MONITOR SHOWING PACED, HR 60, PATIENT DOES HAVE A PACEMAKER. RIGHT HAND SEEN WITH IV OF NS INFUSING AT KVO. ACOSTA CATH PATENT WITH CLEAR YELLOW URINE. AT BEDSIDE. OLD RIGHT AKA SEEN. WILL CONTINUE TO MONITOR AND ASSESS NEEDED.
--- NOTE | 2017-03-16 14:32 | NUR ---
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 Yes 0 * How many steps to enter\exit or inside your home? RAMP 0 * PCP DR. MAXWELL 0 * Pharmacy [facility] 0 * Preadmission Environment Home with Family 0 * ADLs Partial Dependent 0 * Partial ADLs (Assistance needed) Ambulation Bathing Dressing Medication Management Toileting Transfers 0 * Equipment Bedside Commode Cane Other Rolling Walker Shower Chair Wheelchair 0 * Other Equipment TRILOGY MACHINE HOME AND PORTABLE [employer] [place] [facility] 0 * List name and contact numbers for known caregivers / representatives who currently or will assist patient after discharge: HAIM SHAH, SPOUSE, LILI CHRIS, DTR, 0 * Community resources currently utilized Home Health 0 * Please name any agencies selected above. [facility] [employer] [facility] 0 * Additional services required to return to the preadmission environment? No 0 * Can the patient safely return to the preadmission environment? Yes 0 * Has this patient been hospitalized within the prior 30 days at any hospital? Yes 0 CM MET WITH PT AND SPOUSE IN ROOM TO DISCUSS DISCHARGE PLANNING AND NEEDS. PT REPORTS LIVING AT HOME DEPENDENT ON HIS SPOUSE. PT'S SPOUSE REPORTS HAVING ALL NEEDED NO MEDICAL EQUIPMENT FROM UNKNOWN PROVIDER. SPOUSE REPORTS PT'S ABILITY TO ASSIST IN TRANSFERRING HAS GOTTEN WORSE LATELY. PT HAS HOME HEALTH WITH [employer]. CM DISCUSSED AVAILABILITY OF HOME HEALTH, REHAB SERVICES AND MEDICAL EQUIPMENT. PT AND SPOUSE DO NOT WANT TO CONSIDER REHAB OUT OF PT'S HOME AND SPOUSE REPORTS THAT SHE IS TAKING PT HOME AT DISCHARGE AND WOULD LIKE HOUSECALLS AND HOME HEALTH TO RESUME. PT'S SPOUSE REPORTS SHE WILL PICK PT UP FOR DISCHARGE HOME. IMPORTANT MESSAGE FROM MEDICARE PROVIDED AND EXPLAINED. PT AND SPOUSE WILL NOT CONSIDER ANY OUT OF HOME REHAB. WANT HOME HEALTH AND HOUSECALLS TO RESUME. Director Of Vocational Training: Shaun Lewis
[2017-03-16 16:03] VITALS: BP 106/50
[2017-03-16 20:00] VITALS: BP 126/53
--- NOTE | 2017-03-16 20:00 | NUR ---
PT LYING IN BED WITH HOB UP FOR COMFORT. FAMILY IN ROOM. PT'S CODE STATUS IS MED CODE ONLY. 02 @ 3L VIA N/C. BIPAP AT NIGHT. ACOSTA CATH. PACEMAKER. TELEMETRY 61 PACE. FSBS ACHS. 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 RIGHT AKA. CHENEGA. RIGHT HAND IV NS KVO. BED IN LOWEST POSITION AND CALL LIGHT WITHIN REACH.
[2017-03-17] VITALS: BP 161/92
--- NOTE | 2017-03-17 | NUR ---
PT IN BED WITH HOB UP FOR COMFORT. BIPAP ON. RESTING QUIETLY. IN ROOM. BED IN LOWEST POSITION AND CALL LIGHT WITHIN REACH.
--- NOTE | 2017-03-17 03:41 | NUR ---
COMMERCIAL GREEN BUILDING DESIGNER AT BEDSIDE TO OBTAIN VITALS, CALL LIGHT IN REACH. WILL CONTINUE WITH PLAN OF CARE.
[2017-03-17 04:00] VITALS: BP 142/67
[2017-03-17 05:14] LABS: BASOPHILS 0 % (0-2); EOSINOPHILS 0 % (0-7); HEMOGLOBIN 10.1 g/dL (13.5-17.5); IMMATURE GRANULOCYTES 0.3 % (0-5); LYMPHOCYTES 8.5 % (15-50); MCH 27.6 pg (26.0-34.0); MCHC 30.6 g/dL (31.0-37.0); MCV 90.2 fL (80.0-100.0); MEAN PLATELET VOLUME 9.2 fL (7.4-10.4); MONOCYTES 5.2 % (2-11); PLATELET COUNT 248 10x3/uL (130-400); RBC 3.66 10x6/uL (4.20-6.10); RDW 14.3 % (11.5-14.5); WBC 7.4 10x3/uL (4.8-10.8)
[2017-03-17 05:28] LABS: INR 1.51 (0.85-1.17); PROTIME 18.1 SECONDS (11.6-15.0)
[2017-03-17 05:31] LABS: ANION GAP 7.4 mmol/L (8-16); CALCIUM 8.3 mg/dL (8.5-10.1); CARBON DIOXIDE 37.8 mmol/L (21.0-32.0); CREATININE - SERUM 1.1 mg/dL (0.6-1.3); POTASSIUM - SERUM 4.2 mmol/L (3.5-5.1)
--- NOTE | 2017-03-17 07:07 | NUR ---
AM ROUNDING DONE WITH PATIENT ON BIPAP AT PRESENT TIME. LEFT PACEDMAKER WITH PACED ON HEART MONITOR, HR 60. PATIENT IS A MED CODE ONLY. RIGHT HAND SEEN WITH NS INFUSING AT 30 CC/HR. ACOSTA CATH PATENT WITH YELLOW URINE. OLD RIGHT AKA. WILL MONITOR.
[2017-03-17 08:16] VITALS: BP 148/66
[2017-03-17 11:42] VITALS: BP 132/89
[2017-03-17 16:10] VITALS: BP 131/59
--- NOTE | 2017-03-17 17:51 | NUR ---
LAYING ON RIGHT SIDE VISITING WITH FAMILY MEMBERS. DENIES NEEDS. WILL CONTINUE TO FOLLOW.
--- NOTE | 2017-03-17 19:05 | NUR ---
AWAKE ORIENTED X 4. ON 3L/NC. RR 18 EVEN U/L. IV IN R HAND INTACT/PATENT WITH NS INFUSING AT 10ML/HR. ACOSTA INTACT/PATENT. ABD VERY DISTENDED, SOMEWHAT FIRM. DENIES PAIN. HIS IS PRESENT IN ROOM. NO CONCERNS VOICED.
[2017-03-17 20:00] VITALS: BP 144/59
--- NOTE | 2017-03-17 21:10 | NUR ---
ADMIN SCHED PO MEDS WITH SIPS OF WATER SWALLOWING WITHOUT DIFFICULTY. CHECKED BS AT 239, ADMIN HUMALOG 8 UNITS SC TO ABD RT SIDE. ADMIN NASAL SPRAYS PER ORDER. DENIES PAIN OR ANY OTHER NEEDS. HIS IS STAYING THE NIGHT. NO QUESTIONS OR CONCERNS VOICED. ORIENTED TO CALL LIGHT FOR ANY NEEDS.
--- NOTE | 2017-03-17 22:47 | NUR ---
RESP TECH PLACED ON BIPAP. REQUESTED LIGHTS OFF TO SLEEP.
--- NOTE | 2017-03-18 02:13 | NUR ---
HAIR BOILER OPERATOR PRESENT IN ROOM CLEANING FOR INCONTINENCE OF STOOL. REPORTED IS WAS JUST SOME BROWNISH MUCUS.
[2017-03-18 04:00] VITALS: BP 127/64
[2017-03-18 06:06] LABS: INR 1.49 (0.85-1.17)
[2017-03-18 06:35] LABS: BASOPHILS 0 % (0-2); EOSINOPHILS 0 % (0-7); HEMATOCRIT 31.4 % (42.0-54.0); HEMOGLOBIN 9.6 g/dL (13.5-17.5); IMMATURE GRANULOCYTES 0.1 % (0-5); LYMPHOCYTES 13.2 % (15-50); MCHC 30.6 g/dL (31.0-37.0); MCV 91.5 fL (80.0-100.0); MEAN PLATELET VOLUME 9.5 fL (7.4-10.4); NEUTROPHILS 69.7 % (40-80); PLATELET COUNT 231 10x3/uL (130-400); RBC 3.43 10x6/uL (4.20-6.10); RDW 14.4 % (11.5-14.5); WBC 7.4 10x3/uL (4.8-10.8)
[2017-03-18 06:56] LABS: ANION GAP 6.1 mmol/L (8-16); CALCIUM 8.3 mg/dL (8.5-10.1); CARBON DIOXIDE 38.7 mmol/L (21.0-32.0); CREATININE - SERUM 1.1 mg/dL (0.6-1.3); POTASSIUM - SERUM 3.8 mmol/L (3.5-5.1)
--- NOTE | 2017-03-18 07:34 | NUR ---
AM ROUNDS - PT IS AWAKE AND ALERT ASKING FOR SOMETHING TO DRINK. AT BEDSIDE. ACOSTA IS DRAINING CLEAR YELLOW. PINK HEAL PROTECTOR ON LEFT HEAL. RIGHT AKA. SIDE RAILS UP X 2. CALL RAMOS IN REACH. BED AT LOEST POSITION. MONITOR SHOWING PACE, HR 59. PT ON 3L O2 VIA NC. USES BIPAP AT NIGHT. IV TO RIGHT HAND, NS AT KVO (10CC/HR). NO FUTHER NEEDS AT THIS TIME. WILL CONTINUE TO MONITOR
[2017-03-18 08:00] VITALS: BP 113/55
--- NOTE | 2017-03-18 10:38 | NUR ---
Nutrition follow-up: Diet: ADA low sodium PO intake ~72% average of last 9 meals Labs reviewed Wt: 172# +BM PO intake good at this time RDN following.
[2017-03-18 12:00] VITALS: BP 100/60
[2017-03-18 16:00] VITALS: BP 99/45
--- NOTE | 2017-03-18 18:22 | NUR ---
PT RESTING IN BED WITH AT BEDSIDE. NO NEEDS AT THIS TIME. WILL CONTINUE TO MONITOR
[2017-03-18 20:00] VITALS: BP 165/64
--- NOTE | 2017-03-18 21:29 | NUR ---
PT LYING IN BED, AWAKE, ALERT, ORIENTED, HEARING AID IN LEFT EAR, IN CHAIR AT BEDSIDE. INSULIN GIVEN PER S/S, APPLESAUCE GIVEN FOR HS SNACK. PT DENIES ANY NEEDS, AND IS IN NO ACUTE DISTRESS AT THIS TIME. PT/ WILL CALL WHEN PT IS READY TO GO ON BIPAP FOR THE NIGHT. CONTINUE TO MONITOR CLOSELY. BED LOW, CALL LIGHT IN REACH, SIDE RAILS X 2, HOB 30 DEGREES.
[2017-03-19] VITALS: BP 101/50
[2017-03-19 04:00] VITALS: BP 117/57
--- NOTE | 2017-03-19 05:50 | NUR ---
IV TUBING REPLACED FOR FLUIDS AND ANTIBIOTICS. PT RESTING COMFORTABLY. AT BEDSIDE. CONTINUE TO MONITOR.
--- NOTE | 2017-03-19 06:49 | NUR ---
PTS PULLED PTS IV ACCESS OUT WHILE REMOVING PTS BIPAP MASK THIS AM. BLEEDING CONTINUED FOR SEVERAL MINUTES REQUIRING PRESSURE BEFORE APPLYING DRESSING. PT AWAKE, ALERT, DENIES ANY NEEDS. CONTINUE TO MONITOR CLOSELY.
[2017-03-19 08:00] VITALS: BP 117/55; BP 88/44
[2017-03-19 08:47] LABS: BASOPHILS 0.1 % (0-2); EOSINOPHILS 0.9 % (0-7); HEMATOCRIT 35.6 % (42.0-54.0); HEMOGLOBIN 10.8 g/dL (13.5-17.5); IMMATURE GRANULOCYTES 0.3 % (0-5); LYMPHOCYTES 16.9 % (15-50); MCH 28.1 pg (26.0-34.0); MCHC 30.3 g/dL (31.0-37.0); MCV 92.7 fL (80.0-100.0); MEAN PLATELET VOLUME 9.5 fL (7.4-10.4); MONOCYTES 17.2 % (2-11); NEUTROPHILS 64.6 % (40-80); PLATELET COUNT 245 10x3/uL (130-400); RBC 3.84 10x6/uL (4.20-6.10); RDW 14.2 % (11.5-14.5); WBC 6.9 10x3/uL (4.8-10.8)
[2017-03-19 08:59] LABS: INR 1.41 (0.85-1.17); PROTIME 17.1 SECONDS (11.6-15.0)
[2017-03-19 09:00] LABS: CALC OSMOLALITY 287 mosm/kg (275-300); CALCIUM 8.7 mg/dL (8.5-10.1); CHLORIDE - SERUM 100 mmol/L (98-107); GLUCOSE 115 mg/dL (74-106); SODIUM 141 mmol/L (136-145); UREA NITROGEN 29 mg/dL (7-18)
[2017-03-19 09:04] LABS: CREATININE - SERUM 0.8 mg/dL (0.6-1.3); eGFR NON AFRICAN AMERICAN > 90 mL/min (90-120)
[2017-03-19 09:08] LABS: CARBON DIOXIDE 40.8 mmol/L (21.0-32.0)
--- NOTE | 2017-03-19 09:25 | NUR ---
IV SITED TO RIGHT FOREARM AFTER ONE ATTEMPT WITH 20G. ALL AM IV MEDS ADMINISTERD AT THIS TIME. PATIENT TOLERATED WITHOUT C/O DISCOMFORT.
--- NOTE | 2017-03-19 09:54 | NUR ---
AWAKE AND ALERT. ORIENTED X3. NO C/O AT THIS TIME. LUNGS ARE CLEAR BILATERALLY, NO COUGH NOTED. SKIN IS INTACT WITHOUT REDNESS EXCEPT TO COCCYX WHICH IS SLIGHTLY REDDENED, ENCOURAGED TO TURN AND CHANGE PRESSURE POINT, POSITIONED ON RIGHT SIDE AT THIS TIME PER STAFF. ACOSTA PATENT WITH CLEAR YELLOW URINE. AT BEDSIDE.
[2017-03-19 12:00] VITALS: BP 111/56
--- NOTE | 2017-03-19 12:00 | NUR ---
FSBS 226. GIVEN 12 UNITS HUMALOG SUBQ PER SS. LUNCH SERVED IN ROOM. AT BEDSIDE.
--- NOTE | 2017-03-19 13:34 | NUR ---
C/O NOT BEING ABLE TO BREATHE. O2 SAT 98% ON 2L NC. BIPAP PLACED AND PATIENT REPORTS BREATHING MUCH EASIER NOW. WILL MONITOR.
[2017-03-19 16:00] VITALS: BP 125/64
--- NOTE | 2017-03-19 17:00 | NUR ---
FSBS 231. GIVEN 8 UNITS HUMALOG SUBQ PER SS. SUPPER SERVED IN ROOM. NO CHANGES NOTED. CONTINUES AT BEDSIDE.
--- NOTE | 2017-03-19 19:35 | NUR ---
REC'D SITTING IN CHAIR IN ROOM AWAKE AND ALERT. RESPO EVEN AND UNLABORED WITH NO DISTRESS NOTED. HAS IN USE VIA N/C @ 2 L/M. C/O CHEST AND LEFT ARM PAIN RATING 10/10 ON PAIN SCALE WITH NO RADIATING NOTED. ASSESSMENT COMPLETED. C/L IN REACH AT BEDSIDE.
[2017-03-19 20:00] VITALS: BP 124/49
--- NOTE | 2017-03-19 20:00 | NUR ---
REC'D IN BED AWAKE AND ALERR WITH FAMILY VISITING AT BEDSIDE. RESP EVEN AND UNLABORED WITH O2 IN USE AT THIS TIME VIA N/C @ 3 L/M. NO C/O NOTED OR VOICED AT THIS TIME. ASSESSMENT COMPLETED. C/L IN REACH AT BEDSIDE.
[2017-03-20] VITALS: BP 118/53
[2017-03-20 04:00] VITALS: BP 120/51
--- NOTE | 2017-03-20 04:15 | NUR ---
RESTING WITH NO DISTRESS. CPOC.
[2017-03-20 05:29] LABS: CALC OSMOLALITY 288 mosm/kg (275-300); CALCIUM 8.7 mg/dL (8.5-10.1); CARBON DIOXIDE 39.2 mmol/L (21.0-32.0); CHLORIDE - SERUM 101 mmol/L (98-107); CREATININE - SERUM 0.9 mg/dL (0.6-1.3); POTASSIUM - SERUM 4.6 mmol/L (3.5-5.1); SODIUM 139 mmol/L (136-145); UREA NITROGEN 31 mg/dL (7-18); eGFR NON AFRICAN AMERICAN 85 mL/min (90-120)
[2017-03-20 05:32] LABS: BASOPHILS 0 % (0-2); EOSINOPHILS 0.7 % (0-7); HEMATOCRIT 33.2 % (42.0-54.0); IMMATURE GRANULOCYTES 0.1 % (0-5); LYMPHOCYTES 16.4 % (15-50); MCH 27.9 pg (26.0-34.0); MCHC 30.1 g/dL (31.0-37.0); MCV 92.7 fL (80.0-100.0); MEAN PLATELET VOLUME 9.7 fL (7.4-10.4); MONOCYTES 14.2 % (2-11); NEUTROPHILS 68.6 % (40-80); PLATELET COUNT 230 10x3/uL (130-400); RBC 3.58 10x6/uL (4.20-6.10); RDW 14.3 % (11.5-14.5); WBC 6.7 10x3/uL (4.8-10.8)
[2017-03-20 05:34] LABS: GLUCOSE 163 mg/dL (74-106)
[2017-03-20] MEDS ORDERED: K-DUR20 MEQ PO (06:17)
[2017-03-20] MEDS ORDERED: LASIX40 MG PO (06:17)
[2017-03-20 08:00] VITALS: BP 111/53
--- NOTE | 2017-03-20 15:13 | NUR ---
ACOSTA CATHETER REMOVED. 10 ML BALOON DEFLATED, TIP INTACT WHEN REMOVED. PT TRANSFERED DOWN STAIRS FOR D/C. TRANSFERRED TO CAR WITH THREE PERSON ASSIST.
--- NOTE | 2017-03-20 15:24 | NUR ---
ALERT AND ORIENTED X4. AT BEDSIDE. DISCHARGE INSTRUCTIONS GIVEN VERBALLY AND WRITTEN. DISCHARGE PAPERS SIGNED ON CHART. DC RT FA IV TIP INTACT. 4 PERSON ASSIST TO WHEELCHAIR. 4 PERSON ASSIST INTO CAR. REMAINS FREE FROM INJURY.
--- NOTE | 2017-03-20 18:26 | NUR ---
Late Entry 1000 CM telephoned [facility] to advise of discharge today. Rec CB from [facility]. CM faxed clinical for update to resume care. CM advised Evi Finley of referral for resumption of care. Plan for patient to be seen on Tuesday.
== END 2017-03-20 15:27 | disposition home health service (06) | DRG 189 ==
LOC: D.ER 11:05 → D.M2 13:17
PROVIDERS: Emergency Medicine; Internal Medicine Pulmonary Disease; ADMIT Family Medicine
PROC: 5A09557 Assistance with Respiratory Ventilation, Greater than 96 Consecutive Hours, Continuous Positive Airway Pressure (ICD-10-PCS; principal; 2017-03-14)
DX: J96.22 Acute and chronic respiratory failure with hypercapnia (principal); I50.23 Acute on chronic systolic (congestive) heart failure; J44.1 Chronic obstructive pulmonary disease with (acute) exacerbation; N11.9 Chronic tubulo-interstitial nephritis, unspecified; J96.21 Acute and chronic respiratory failure with hypoxia; G47.33 Obstructive sleep apnea (adult) (pediatric); Z99.81 Dependence on supplemental oxygen; J84.10 Pulmonary fibrosis, unspecified; I08.3 Combined rheumatic disorders of mitral, aortic and tricuspid valves; K21.9 Gastro-esophageal reflux disease without esophagitis; I48.91 Unspecified atrial fibrillation; Z89.611 Acquired absence of right leg above knee; Z95.0 Presence of cardiac pacemaker; E11.65 Type 2 diabetes mellitus with hyperglycemia; E87.6 Hypokalemia; D63.8 Anemia in other chronic diseases classified elsewhere; Z79.01 Long term (current) use of anticoagulants; Z79.4 Long term (current) use of insulin; I25.10 Atherosclerotic heart disease of native coronary artery without angina pectoris; N31.9 Neuromuscular dysfunction of bladder, unspecified; Z86.73 Personal history of transient ischemic attack (TIA), and cerebral infarction without residual deficits